=== PATIENT | female | born 1955 | race Caucasian/White ===

== ENCOUNTER → 2017-11-20 | Day surgery (SDC) | payer BC ==
[2017-11-18 10:17] VITALS: Ht 149.9 cm; Wt 59.1 kg
[~2017-11-20] VITALS: Ht 149.9 cm; Wt 59.1 kg
[~2017-11-20] MED LIST: 500ML BSS 0.3ML EPI 1:1000PF IRRIG ONE; ACETAMINOPHEN 325 MG TAB PO PRN; AMVISC PLUS 0.8ML SYRINGE INT OCU ONE; ATROPINE SULFATE 0.1 MG/ML 5ML SYR IV PRN; AcetaZOLAMIDE 250 MG TAB PO SCH; BENA40TA6 PO; BETAXOLOL HCL 0.25% OP SUSP PER DROP CHARGE OPR SCH; BRIMONIDINE TART 0.2% OP SOLN PER DROP CHARGE ONE; CLON-460 PO; CYCLOPENTOLATE HCL 1% OP SOLN PER DROP CHARGE OPR SCH; ENDOCOAT 0.85ML SYRINGE INT OCU ONE; EpHEDrine SULFATE INJ 50 MG/ML AMP IV PRN; EpINEphrine INJ 1MG/ML AMP 1 MG/ML AMP ONE; LACTATED RINGER'S 1000ML 500 ML IV SCH; LIDOCAINE 4% OP SOLN DROP CHARGE ONE; LIDOCAINE 4% OP SOLN DROP CHARGE OPR SCH; LIDOCAINE HCL 1% MPF 2 ML VIAL ONE; MIDAZOLAM HCL 1 MG/ML 2ML VIAL ONE; MIX: 4ML BSS 1ML EPI 1:1000 PF INSTIL ONE; MOXIFLOXACIN OPH SOLN PER DROP CHARGE ONE; MOXIFLOXACIN OPH SOLN PER DROP CHARGE OPR SCH; OCUCOAT 1 ML SOLN IO ONE; PHENYLEPHRINE HCL 2.5% OP SOLN PER DROP CHARGE OPR SCH; POVIDONE-IODINE OP SOLN 30 ML BTL ONE; PROP80TA2 PO; PROPARACAINE 0.5% OP SOLN PER DROP CHARGE OPR SCH; TOBRAMYCIN/DEXAMETHASONE OPH OINT PER APPLN CHARGE ONE; TROPICAMIDE 1% OP SOLN PER DROP CHARGE OPR SCH
--- NOTE | 2017-11-20 07:35 | History & Physical Bridge - SC ---
H&P Re-Evaluation Bridge Note: I have examined the patient, reviewed the History & Physical and in the interval since the performance of the History & Physical I have noted the following changes of clinical significance: No changes noted
[2017-11-20] MEDS: PHENYLEPHRINE HCL 2.5% OP SOLN PER DROP CHARGE OPR SCH ×2 (08:42→08:46)
[2017-11-20] MEDS: TROPICAMIDE 1% OP SOLN PER DROP CHARGE OPR SCH ×2 (08:43→08:48)
[2017-11-20] MEDS: CYCLOPENTOLATE HCL 1% OP SOLN PER DROP CHARGE OPR SCH ×2 (08:44→08:49)
[2017-11-20] MEDS: MOXIFLOXACIN OPH SOLN PER DROP CHARGE OPR SCH ×2 (08:45→08:55)
[2017-11-20] MEDS: LACTATED RINGER'S 1000ML 500 ML IV SCH ×2 (08:57→09:09)
--- NOTE | 2017-11-20 09:33 | [facility] Operative Report ---
Operative Report Date of Service Nov 20, 2017. Operative Report 1. PREOPERATIVE DIAGNOSIS: Senile Posterior Subcapsular Cataract, right eye. 2. POSTOPERATIVE DIAGNOSIS: Senile Posterior Subcapsular Cataract, right eye. 3. PROCEDURE: Phacoemulsification of right cataract with posterior chamber lens implant, type Tecnis, model Symfony [id number], power +21.5 diopters. ANESTHESIA: Local standby. SURGEON: Dr. Brown. COMPLICATIONS: None. OPERATING TIME: 10 minutes. 4. OPERATION AND FINDINGS: DESCRIPTION OF PROCEDURE: The right pupil was dilated. The anesthetic was administered using a topical technique. The right eye was prepped and draped. A speculum was placed. A clear corneal incision was formed. The chamber was filled with Amvisc Plus and Endocoat. Epinephrine solution was used. A paracentesis was placed. A capsulorrhexis was performed. The nucleus was hydrodissected. The lens was removed with phacoemulsification. Time was 3.26 seconds. The aspiration unit was used to remove the cortex. The capsule was filled with Amvisc Plus. The lens implant was folded and placed into the capsule. The incision was hydrated. The Amvisc was aspirated. The wound was secure. The chamber was deep. The pupil was round. Brimonidine, TobraDex ointment and Vigamox solution were placed. The speculum was removed. The patient was returned to the Recovery Room in stable condition. I attest to the content of the Intraoperative Record and any orders documented therein. Any exceptions are noted below. The scribe's documentation has been prepared in my presence, under my direction and personally reviewed by me in its entirety. I confirm that the note above accurately reflects all work, treatment, procedures, and medical decision making performed by me. I personally scribed for Ernesto Brown M.D. ([email or web address]) on 11/20/17 at 09:33. Electronically submitted by Noreen Winchester ([email or web address]).
--- NOTE | 2017-11-20 09:35 | Discharge Instructions-SurgCtr ---
Discharge Instructions Date of Service Nov 20, 2017. Visit Reason for Visit: Cataract Right Eye Discharge Discharge Diagnosis / Problem: lens implant right eye Discharge Goals Goal(s): Improve function Activity Recommendations Activity Limitations: resume your previous activity Lifting Limitations: no more than 10 pounds Exercise/Sports Limitations: gradually increase as tolerated May Resume Sexual Activity: when tolerated Shower/Bathe: tomorrow Driving or Machine Use: resume 1 day after discharge Anesthesia . Post Anesthesia Instructions: If you have had General Anesthesia or IV Sedation: * Do not drive today. * Resume driving when surgeon permits. * Do not make important decisions or sign legal documents today. * Call surgeon for: 1. Temperature elevations greater than 101 degrees F. 2. Uncontrollable pain. 3. Excessive bleeding. 4. Persistent nausea and vomiting. 5. Medication intolerance (nausea, vomiting or rash). * For nausea and vomiting use only clear liquids such as: tea, soda, bouillon until nausea subsides, then gradually increase diet as tolerated. * If you have any concerns or questions, call your surgeon's office. If physician is unavailable and it is an emergency, call 911 or go to the nearest emergency room. . Instructions / Follow-Up Instructions / Follow-Up ACTIVITY RECOMMENDATIONS: * Light activities. * Mild irritation and blurred vision are common for the first few days. * You may walk outside, read, watch television. * Redness around the white part of the eye is common. MEDICATIONS: Resume previous medications unless instructed otherwise by your surgeon. * Take white Diamox (Acetazolamide) tablet at 1 pm today. Start all eye drops at 1 pm today: * Eye drops (today and tomorrow): Prednisone - one drop in operative eye every 3 hours while awake Ofloxacin - one drop in operative eye every 3 hours while awake SPECIAL CARE INSTRUCTIONS: * Tape plastic shield over eye to sleep at night. Call your doctor at with any concerns or problems. FOLLOW UP VISIT: Follow-up with Dr Brown at [place] office as scheduled. Diet Recommendations Home Diet: no limitations Procedures Procedures Performed: Right Cataract Phacoemulsification With Intraocular Lens Implant; Symfony Lens Pending Studies Studies pending at discharge: no Medical Emergencies . Who to Call and When: Medical Emergencies: If at any time you feel your situation is an emergency, please call 911 immediately. . Non-Emergent Contact Non-Emergency issues call your: Director Of Regulatory Affairs Call Non-Emergent contact if: your pain is not controlled [phone] . . "Provider Documentation" section prepared by Ernesto Brown. .
[2017-11-20 09:38] VITALS: TEMP 36.5
[2017-11-20 09:54] VITALS: BP 141/85; PULSE 81; O2SAT 96
--- NOTE | 2017-11-20 10:11 | Anesthesia Progress Nt - [facility] ---
Anesthesia Post Op Note Date & Time Nov 20, 2017 at 10:11 Vital Signs Pain Intensity: 0 Vital Signs Past 12 Hours Date Time Temp Pulse Resp B/P (MAP) Pulse Ox O2 Delivery O2 Flow Rate FiO2 11/20/17 09:54 81 16 141/85 (103) 96 Room Air 11/20/17 09:38 36.5 62 16 153/63 (93) 98 Room Air 11/20/17 08:26 36.8 65 20 141/88 (105) 100 Room Air Notes Mental Status: alert / awake / arousable, participated in evaluation Nausea / Vomiting: adequately controlled Pain: adequately controlled Airway Patency, RR, SpO2: stable & adequate BP & HR: stable & adequate Hydration State: stable & adequate Anesthetic Complications: no major complications apparent
== END | disposition home or self-care (01) ==
LOC: X.SURG 07:57
PROVIDERS: ATTEND Specialist
DX: H26.8 Other specified cataract (principal); I10 Essential (primary) hypertension

== ENCOUNTER 2018-04-21 06:27 | Inpatient (IN) ==
[2018-04-21] MEDS ORDERED: PANTOprazole 80 MG in DEXTROSE 5% 100 ML IV ONE (06:57)
[2018-04-21] MEDS ORDERED: PANTOPRAZOLE BOLUS/DRIP 1 EA IV STA (06:57)
[2018-04-21] MEDS ORDERED: SODIUM CHLORIDE 0.9% 500 ML IV SCH (07:00)
[2018-04-21 07:04] LABS: iSTAT Hemoglobin 5.1 g/dl (12.0-16.0); iSTAT Ionized Calcium 1.07 mmol/l (1.12-1.32)
[2018-04-21 07:17] LABS: Albumin Level 2.1 gm/dl (3.4-5.0); BUN Creatinine Ratio 25.1 (10-20); Creatinine Clr Calc Pharmacy 37.9 ml/min; Est GFR (African American) 49.1; Est GFR (Non-African American) 42.4; INR 1.3 (0.9-1.1); Partial Thromboplastin Ratio 0.8; Partial Thromboplastin Time 21.3 Seconds (21.0-31.0); Potassium 4.6 mmol/L (3.5-5.1); Prothrombin Time 13.2 Seconds (9.0-12.0)
[2018-04-21 07:20] LABS: Albumin Globulin Ratio 0.5 (0.9-2); Bilirubin,Total 1.4 mg/dl (0.2-1); Total Protein 6.1 gm/dl (6.4-8.2)
--- NOTE | 2018-04-21 07:24 | XRay Report ---
XR chest 1V portable CLINICAL HISTORY: GI bleed dyspnea COMPARISON STUDY: 04/03/2018 FINDINGS: The bones soft tissues and hemidiaphragms are normal. The cardiomediastinal silhouette is n ormal. The lungs are clear. The pulmonary vasculature is normal. IMPRESSION: Negative chest. The above report was generated using voice recognition software. It may contain grammatical, syntax or spelling errors. Electronically signed by: Camden Banuelos M.D. 04/21/2018 7:22 AM
[2018-04-21 07:25] LABS: Hematocrit (blood only) 14.4 % (37-47); Hemoglobin 4.3 g/dL (12.0-16.0); Mean Corpuscular Hgb Conc 29.9 g/dL (32-36); Mean Corpuscular Volume 81.8 fL (80-100); Mean Platelet Volume 10.4 fL (7.4-10.4); Nucleated RBC # (auto) 0.09 K/uL (0-0); Nucleated RBC % (auto) 0.8 %; Platelet Count 236 K/uL (130-400); RDW Coefficient of Variation 21.4 % (11.5-14.5); RDW Standard Deviation 64.1 fL (36.4-46.3); Red Blood Count 1.76 M/uL (4.2-5.4); White Blood Count 10.37 K/uL (4.8-10.8)
[2018-04-21 07:38] LABS: Anisocytosis Present; Basophils # (auto) 0.05 K/uL (0-0.2); Basophils % (auto) 0.5 %; Eosinophils # (auto) 0.84 K/uL (0-0.5); Eosinophils % (auto) 8.1 %; Hypochromasia Present; Immature Granulocytes # (auto) 0.02 K/uL (0.00-0.02); Immature Granulocytes % (auto) 0.2 %; Lymphocytes # (auto) 1.76 K/uL (1.2-3.4); Monocytes # (auto) 1.05 K/uL (0.11-0.59); Monocytes % (auto) 10.1 %; Neutrophils # (auto) 6.65 K/uL (1.4-6.5); Neutrophils % (auto) 64.1 %; Polychromasia 1+; Schistocytes 1+; Target Cells 1+
[2018-04-21] MEDS: PANTOprazole 40 MG in DEXTROSE 5% 100 ML IV SCH ×4 (07:50→22:58)
[2018-04-21] MEDS ORDERED: OCTREOTIDE ACETATE 100 MCG in SYRINGE 9 ML IV STA (08:24)
[2018-04-21] MEDS ORDERED: ICU PROTOCOL FOR HYPERGLYCEMIA PRN (10:02)
[2018-04-21] MEDS ORDERED: LORazepam 1 MG/2 ML VIAL IV PRN (10:02)
--- NOTE | 2018-04-21 10:38 | History & Physical Report ---
Date of Service April 21, 2018 Assessment & Plan (1) GI bleed: (2) Anemia: -Admit to ICU -Patient presenting from home with reports of generalized weakness and dark tarry stools x 2 days; due to recent admission to [facility] 04/03 through 04/10 for hepatic encephalopathy, alcohol withdrawal, UTI, C. difficile -In the ED, patient found to have hemoglobin 4.3; mildly tachycardic but otherwise hemodynamically stable -EGD 02/2018 Impression: Moderate Schatzki ring, Medium-sized hiatal hernia, A few non-bleeding angioectasias in the stomach, Multiple non-bleeding angioectasias in the duodenum. -Transfuse 2 unit PRBC, start serial H&H after PRBC transfusion -Case was discussed with Dr. Lozano -recommends IV PPI drip and IV octreotide drip -N.p.o., IVF when PRBC not infusing (3) RANDY (acute kidney injury): -Creatinine 1.34 on presentation (baseline 0.6-0.9) -Likely prerenal secondary to hypovolemia from blood loss -Transfuse as needed PRBC, IVF when PRBC not infusing -Hold diuretics (4) Alcoholic cirrhosis of liver: (5) Alcohol abuse: -Patient with history of heavy alcohol use in the past, recent admission for alcohol withdrawal/hepatic encephalopathy/decompensated cirrhosis -Patient reports "a couple sips of alcohol" over the past couple weeks -Check alcohol level -Alcohol withdrawal "at risk" protocol -Holding diuretics for cirrhosis secondary to RANDY as above (6) Clostridium difficile infection: -Due to insurance coverage issues, there was a delay in patient picking up oral vancomycin from recent hospital discharge -No diarrhea or abdominal pain, afebrile -Discussed with lily JIMENEZ for patient to complete remaining oral vancomycin course (7) Essential tremor: -Hold propranolol for now due to hypovolemia /borderline BPs (8) DVT prophylaxis: -SCDs due to GI bleed History of Present Illness Chief Complaint: Generalized weakness Primary Care Provider: Mary Martinez 62-year-old female who presents to the ED with generalized weakness. Patient has history of alcoholic cirrhosis, recently being admitted to [facility] 04/03 through 04/10 for hepatic encephalopathy, alcohol withdrawal, C. difficile infection, enterococcus UTI. Patient was discharged on amoxicillin for the UTI which she completed. She was also discharged on vancomycin capsules for the C. difficile however reports difficulty with insurance coverage and patient still has 9 tablets remaining of the prescription. Since being home, patient reports she has been doing well until a couple of days ago. Of note, patient did miss her hospital discharge follow-up appointment with PCP. Patient reports generalized weakness for the past couple of days. She also has noted her stools to be dark and tarry. is at the bedside who reports that he took her blood pressure this morning and systolically it was in the 60s. Patient reports having "a couple sips of alcohol"over the past 2 weeks. She denies abdominal pain, nausea, vomiting, diarrhea. No fevers chills. She denies lightheadedness, dizziness, diaphoresis, syncopal events. No urinary symptoms. In the ED, patient is found to have hemoglobin 4.3. She is hemodynamically stable. She was given IVF and started on a PPI drip. She was also typed and crossed for PRBC transfusion. Allergies Allergy/AdvReac Type Severity Reaction Status Date / Time lactulose AdvReac Severe severe Verified 04/21/18 06:55 loose diarrhea Home Medications Home Medications Medication Instructions Recorded Confirmed Type thiamine HCl (vitamin B1) [Vitamin 100 mg PO QAM #0 tab 03/13/18 04/21/18 Rx B-1] spironolactone 200 mg PO DAILY 04/03/18 04/21/18 History furosemide 40 mg PO QAM 30 Days #30 tab 04/10/18 04/21/18 Rx pantoprazole 40 mg PO QAM 30 Days #30 tab 04/10/18 04/21/18 Rx propranolol 40 mg PO QAM 30 Days #15 tab 04/10/18 04/21/18 Rx folic acid 1 mg PO DAILY 04/21/18 04/21/18 History magnesium oxide 400 mg PO DAILY 04/21/18 04/21/18 History rifaximin 550 mg PO BID 04/21/18 04/21/18 History vancomycin 125 mg PO Q6H 04/21/18 04/21/18 History Past Med/Surg History Medical History Clostridium difficile infection (Chronic) Alcoholic cirrhosis of liver (Chronic) Anemia (Acute) Alcohol abuse (Chronic) Essential tremor (Chronic) On propanolol Telangiectasia (Chronic) Alcohol dependence (Inactive) Alcohol withdrawal (Inactive) Altered mental status (Inactive) Anasarca (Inactive) Anemia (Inactive) DVT prophylaxis (Inactive) Decompensated hepatic cirrhosis (Inactive) ETOH abuse (Inactive) Elevated INR (Inactive) Encephalopathy, hepatic (Inactive) Encounter for pre-operative examination (Inactive) Enterococcal infection (Inactive) GI bleed (Inactive) Hyperammonemia (Inactive) Hyperbilirubinemia (Inactive) Jaundice (Inactive) Liver cirrhosis (Inactive) Severe anemia (Inactive) s/p 3 units of PRBCs transfusion Skin ulcer of buttock, limited to breakdown of skin (Inactive) UTI (urinary tract infection) due to Enterococcus (Inactive) Weakness (Inactive) Surgical History History of cataract surgery (Resolved) Family History Other No pertinent family history Social History marital status: Current Living Situation: Spouse current occupational status: unemployed Other Information That Helps Us Care for You: No Feels Safe at Home: Yes Safety Concerns: Feels Safe At This Time Smoking Status: Never smoker Hx Alcohol Use: Yes (History of heavy alcohol use) Alcohol type: hard liquor and other Alcohol Intake Frequency: other Hx Substance Use: No Beliefs That Will Affect Care: None Preferred Language: [place] Communication Ability: Impaired Review of Systems ROS per HPI, all other systems reviewed and negative Physical Exam 2 Vital Signs (Past 24 Hours): Last Vital Signs Temp 36.8 C 04/21/18 10:20 Pulse 91 H 04/21/18 10:20 Resp 18 04/21/18 10:20 BP 119/58 L 04/21/18 10:20 Pulse Ox 100 04/21/18 10:20 Constitutional: WD/WN, vitals as above Eyes: PERRL, conjunctivae normal, anicteric sclerae ENMT: external ear and nose normal, oropharynx normal Respiratory: normal respiratory effort, lungs clear to auscultation Cardiovascular: Rate/Rhythm: regular rhythm and + tachycardic Vessels: normal peripheral pulses Extremities: + edema Gastrointestinal (Abdomen): normal bowel sounds, soft, nontender, no hepatosplenomegaly Musculoskeletal: no cyanosis or clubbing, extremities motor strength 5/5 Skin: no rashes, warm and dry Chronic telangiectasia noted to be BUE and BLE Neurologic: PERRL, EOMI, accommodation nl, no face palsy, no dysarthria Psychiatric: A+Ox3, euthymic affect Results & Data Laboratory Results Laboratory Last Values WBC 10.37 K/uL (4.8-10.8) 04/21/18 06:42 RBC 1.76 M/uL (4.2-5.4) L 04/21/18 06:42 Hgb 4.3 g/dL (12.0-16.0) L* 04/21/18 06:42 POC Hgb 5.1 g/dl (12.0-16.0) L* 04/21/18 06:50 Hct 14.4 % (37-47) L* 04/21/18 06:42 POC Hct 15 % (37-47) L* 04/21/18 06:50 MCV 81.8 fL (80-100) 04/21/18 06:42 MCH 24.4 pg (25-34) L 04/21/18 06:42 MCHC 29.9 g/dL (32-36) L 04/21/18 06:42 RDW Std Deviation 64.1 fL (36.4-46.3) H 04/21/18 06:42 RDW Coeff of Ladarius 21.4 % (11.5-14.5) H 04/21/18 06:42 Plt Count 236 K/uL (130-400) 04/21/18 06:42 MPV 10.4 fL (7.4-10.4) 04/21/18 06:42 Immature Gran % (Auto) 0.2 % 04/21/18 06:42 Neut % (Auto) 64.1 % 04/21/18 06:42 Lymph % (Auto) 17.0 % 04/21/18 06:42 Pender % (Auto) 10.1 % 04/21/18 06:42 Eos % (Auto) 8.1 % 04/21/18 06:42 Baso % (Auto) 0.5 % 04/21/18 06:42 Immature Gran # (Auto) 0.02 K/uL (0.00-0.02) 04/21/18 06:42 Neut # (Auto) 6.65 K/uL (1.4-6.5) H 04/21/18 06:42 Lymph # (Auto) 1.76 K/uL (1.2-3.4) 04/21/18 06:42 Pender # (Auto) 1.05 K/uL (0.11-0.59) H 04/21/18 06:42 Eos # (Auto) 0.84 K/uL (0-0.5) H 04/21/18 06:42 Baso # (Auto) 0.05 K/uL (0-0.2) 04/21/18 06:42 Absolute Nucleated RBC 0.09 K/uL (0-0) H 04/21/18 06:42 Nucleated RBC % (auto) 0.8 % 04/21/18 06:42 Polychromasia 1+ 04/21/18 06:42 Hypochromasia Present 04/21/18 06:42 Anisocytosis Present 04/21/18 06:42 Target Cells 1+ 04/21/18 06:42 Schistocytes 1+ 04/21/18 06:42 PT 13.2 Seconds (9.0-12.0) H 04/21/18 06:42 INR 1.3 (0.9-1.1) H 04/21/18 06:42 APTT 21.3 Seconds (21.0-31.0) 04/21/18 06:42 PTT Ratio 0.8 04/21/18 06:42 POC Sodium 136 mEq/L (135-144) 04/21/18 06:50 Sodium 135 mmol/L (136-145) L 04/21/18 06:42 POC Potassium 4.6 mEq/L (3.3-5.0) 04/21/18 06:50 Potassium 4.6 mmol/L (3.5-5.1) 04/21/18 06:42 POC Chloride 104 mEq/L (101-112) 04/21/18 06:50 Chloride 106 mmol/L (98-107) 04/21/18 06:42 Carbon Dioxide 18 mmol/L (21-32) L 04/21/18 06:42 POC Total CO2 17 mEq/l (24-31) L 04/21/18 06:50 Anion Gap 12.0 (3-11) H 04/21/18 06:42 POC Anion Gap 21.0 mmol/L (16-25) 04/21/18 06:50 POC BUN 29 mg/dl (7-18) H 04/21/18 06:50 BUN 34 mg/dl (7-18) H 04/21/18 06:42 Creatinine 1.34 mg/dl (0.6-1.2) H 04/21/18 06:42 POC Creatinine 1.3 mg/dl (0.6-1.3) 04/21/18 06:50 Est Cr Clr Drug Dosing 37.9 ml/min 04/21/18 06:42 Est GFR ( Amer) 49.1 04/21/18 06:42 Est GFR (Non-Af Amer) 42.4 04/21/18 06:42 BUN/Creatinine Ratio 25.1 (10-20) H 04/21/18 06:42 Glucose 110 mg/dl (70-99) H 04/21/18 06:42 POC Glucose (other) 109 mg/dl (70-99) H 04/21/18 06:50 Calcium 8.0 mg/dl (8.5-10.1) L 04/21/18 06:42 POC Ioniz Calcium Zechariah 1.07 mmol/l (1.12-1.32) L 04/21/18 06:50 Magnesium 1.8 mg/dl (1.8-2.4) 04/21/18 06:42 Total Bilirubin 1.4 mg/dl (0.2-1) H 04/21/18 06:42 AST 40 U/L (15-37) H 04/21/18 06:42 ALT 22 U/L (12-78) 04/21/18 06:42 Alkaline Phosphatase 163 U/L (45-117) H 04/21/18 06:42 Total Protein 6.1 gm/dl (6.4-8.2) L 04/21/18 06:42 Albumin 2.1 gm/dl (3.4-5.0) L 04/21/18 06:42 Globulin 4.0 gm/dl (2.5-4.0) 04/21/18 06:42 Albumin/Globulin Ratio 0.5 (0.9-2) L 04/21/18 06:42 POC Stool Occult Blood Positive (Negative) H 04/21/18 06:54 Blood Type B Positive 04/21/18 06:42 Antibody Screen NEGATIVE 04/21/18 06:42 Crossmatch See Detail 04/21/18 06:42 Diagnostic Findings CXR IMPRESSION: Negative chest. Code Status & VTE Plan VTE Prophylaxis Plan VTE Prophylaxis will be ordered: Yes Supervising Physician Co-Signing Physician Notes I have seen and examined the patient and have discussed the case with the provider above. I agree with the assessment and plan as stated. Mrs. Jordan is well known to me from prior admissions. She appears to be at baseline mental status. She recently discovered some blackish stools in the last couple of days. She denies any drinking. She feels her chronic skin wounds are less painful. She has underlying HHT, which is likely contributing to her blood loss anemia in addition to her cirrhotic condition causing higher intravenous pressures and a decline in factor production by the liver. She has now had multiple episodes where she has required a blood transfusion in the last couple of months. Therefore, she will need some weekly or biweekly monitoring after discharge. She is currently receiving two units of blood and doing well with this. She is being resuscitated in the ICU with a plan for EGD in am per GI. Jefry, DO _ (1) Anemia Anemia type: unspecified type Bone marrow failure anemia type: Chronic kidney disease stage: Folate deficiency anemia type: Hemolytic anemia type: Iron deficiency anemia type: Other causes of anemia: Vitamin B12 deficiency anemia type: Qualified Code(s): D64.9 - Anemia, unspecified
--- NOTE | 2018-04-21 11:19 | Procedure Note ---
Procedure Note Date of Service April 21, 2018 Note Central line placement due to poor IV access, done at the bedside in room 2 in ICU, consent obtained from the and the patient, agreed to the procedure. The patient was placed in supine position, under strict sterile field, using Seldinger technique, anterior approach, the skin was prepped with chlorhexidine, injected with 10 mL of 1% lidocaine, using a dilator, central line was placed to 16 cm, all ports were flushed with saline, secured with 2 sutures, covered with surgical dressing, no immediate complication, chest x-ray is pending. Will review. Thank you
--- NOTE | 2018-04-21 12:06 | Gastrointestinal Consultation ---
Date of Consultation April 21, 2018 Assessment & Plan (1) Alcoholic cirrhosis of liver: Pt is a 62 y/o female w hx of ETOH cirrhosis admitted for symptomatic anemia, melena. 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 - Resuscitate w blood transfusions ; Monitor H/H closely - Ok for CL diet today until midnight - PPI bolus and gtt. - Continue Octreotide gtt. - Keep NPO after midnight for EGD evaluation tomorrow. - Complete Vancomycin course for prior Cdiff infection. - Continue Xifaxan and Lactulose at home doses to prevent hepatic encephalopathy. Present on Admission?: Yes (2) Anemia: Present on Admission?: Yes (3) Clostridium difficile infection: Present on Admission?: Yes (4) Telangiectasia: Present on Admission?: Yes Supervising Physician Co-Signing Physician Notes I have performed a history and physical examination of this patient and reviewed the electronic medical record. Specifically, on physical examination patient is arousable but disoriented. I have discussed the case with MASON Natarajan. The above note reflects my findings, conclusions, and recommendations. Ernesto Lozano MD History of Present Illness Reason for Consultation: GI bleed Requesting Physician: Dr. Brandi Capps Attending Physician: Dr. Uday Lozano History of Present Illness Pt is a 62 y/o female w hx ETOH cirrhosis, who presented to ED w weakness and reports of dark stools x 48 hrs. She was admitted 04/03- for hepatic encephalopathy, ETOH withdrawal, enterococcus UTI, Cdiff. After DC'd she did have "sips"of ETOH w family but reports family knows pt shouldn't be drinking ETOH. Upon presentation, she was noted to have Hgb of 4, VS stable otherwise. She denies any light headedness, dizziness, CP, SOB, abd pain, n/v otherwise. She was type and crossed 4U PRBC, getting first unit transfused in ED. She didn't have any BMs in ED but stool did test heme positive. CXR unremarkable. Endoscopic hisotry: EGD 2018: ring, HH, AVMS, no varices Colonoscopy 2018:Multiple ulcers from transverse colon to cecum. Biopsied. Multiple colonic angioectasias Allergies Allergy/AdvReac Type Severity Reaction Status Date / Time lactulose AdvReac Severe severe Verified 04/21/18 06:55 loose diarrhea Home Medications Home Medications Medication Instructions Recorded Confirmed Type thiamine HCl (vitamin B1) [Vitamin 100 mg PO QAM #0 tab 03/13/18 04/21/18 Rx B-1] spironolactone 200 mg PO DAILY 04/03/18 04/21/18 History furosemide 40 mg PO QAM 30 Days #30 tab 04/10/18 04/21/18 Rx pantoprazole 40 mg PO QAM 30 Days #30 tab 04/10/18 04/21/18 Rx propranolol 40 mg PO QAM 30 Days #15 tab 04/10/18 04/21/18 Rx folic acid 1 mg PO DAILY 04/21/18 04/21/18 History magnesium oxide 400 mg PO DAILY 04/21/18 04/21/18 History rifaximin 550 mg PO BID 04/21/18 04/21/18 History vancomycin 125 mg PO Q6H 04/21/18 04/21/18 History Patient History Medical History Clostridium difficile infection (Chronic) Alcoholic cirrhosis of liver (Chronic) Anemia (Acute) Alcohol abuse (Chronic) Essential tremor (Chronic) On propanolol Telangiectasia (Chronic) Alcohol dependence (Inactive) Alcohol withdrawal (Inactive) Altered mental status (Inactive) Anasarca (Inactive) Anemia (Inactive) DVT prophylaxis (Inactive) Decompensated hepatic cirrhosis (Inactive) ETOH abuse (Inactive) Elevated INR (Inactive) Encephalopathy, hepatic (Inactive) Encounter for pre-operative examination (Inactive) Enterococcal infection (Inactive) GI bleed (Inactive) Hyperammonemia (Inactive) Hyperbilirubinemia (Inactive) Jaundice (Inactive) Liver cirrhosis (Inactive) Severe anemia (Inactive) s/p 3 units of PRBCs transfusion Skin ulcer of buttock, limited to breakdown of skin (Inactive) UTI (urinary tract infection) due to Enterococcus (Inactive) Weakness (Inactive) Surgical History History of cataract surgery (Resolved) Family History Other No pertinent family history Social History marital status: Current Living Situation: Spouse current occupational status: unemployed Other Information That Helps Us Care for You: No Feels Safe at Home: Yes Safety Concerns: Feels Safe At This Time Smoking Status: Never smoker Hx Alcohol Use: Yes (History of heavy alcohol use) Alcohol type: hard liquor and other Alcohol Intake Frequency: other Hx Substance Use: No Beliefs That Will Affect Care: None Preferred Language: Belizean Communication Ability: Impaired Review of Systems Constitutional: as per Subjective / HPI and + weakness Respiratory: no cough and no dyspnea Cardiovascular: no chest pain Gastrointestinal: as per Subjective / HPI Integumentary: no yellowing of the skin Physical Exam 2 Vital Signs (Past 24 Hours): Last Vital Signs Temp 36.8 C 04/21/18 11:05 Pulse 101 H 04/21/18 11:05 Resp 23 04/21/18 11:05 BP 123/65 04/21/18 11:05 Pulse Ox 100 04/21/18 11:05 Constitutional: WD/WN, vitals as above well groomed, cooperative and comfortable Eyes: PERRL, conjunctivae normal, anicteric sclerae ENMT: external ear and nose normal, oropharynx normal Respiratory: normal respiratory effort, lungs clear to auscultation Cardiovascular: RRR, no murmur, no edema Gastrointestinal (Abdomen): normal bowel sounds, soft, nontender, no hepatosplenomegaly Skin: no rashes, warm and dry no jaundice Neurologic: Motor/Sensory: no asterixis Psychiatric: Orientation: alert, oriented to person, oriented to place and cooperative Affect: euthymic affect Lymphatic: no lymphedema Results & Data Laboratory Results Laboratory Results - last 48 hr 04/21/18 04/21/18 04/21/18 06:42 06:42 06:42 WBC 10.37 RBC 1.76 L Hgb 4.3 L* POC Hgb Hct 14.4 L* POC Hct MCV 81.8 MCH 24.4 L MCHC 29.9 L RDW Std Deviation 64.1 H RDW Coeff of [place] 21.4 H Plt Count 236 MPV 10.4 Immature Gran % (Auto) 0.2 Neut % (Auto) 64.1 Lymph % (Auto) 17.0 [place] % (Auto) 10.1 Eos % (Auto) 8.1 Baso % (Auto) 0.5 Immature Gran # (Auto) 0.02 Neut # (Auto) 6.65 H Lymph # (Auto) 1.76 [place] # (Auto) 1.05 H Eos # (Auto) 0.84 H Baso # (Auto) 0.05 Absolute Nucleated RBC 0.09 H Nucleated RBC % (auto) 0.8 Polychromasia 1+ Hypochromasia Present Anisocytosis Present Target Cells 1+ Schistocytes 1+ PT 13.2 H INR 1.3 H APTT 21.3 PTT Ratio 0.8 POC Sodium Sodium 135 L POC Potassium Potassium 4.6 POC Chloride Chloride 106 Carbon Dioxide 18 L POC Total CO2 Anion Gap 12.0 H POC Anion Gap POC BUN BUN 34 H Creatinine 1.34 H POC Creatinine Est Cr Clr Drug Dosing 37.9 Est GFR ( Amer) 49.1 Est GFR (Non-Af Amer) 42.4 BUN/Creatinine Ratio 25.1 H Glucose 110 H POC Glucose (other) Calcium 8.0 L POC Ioniz Calcium Zechariah Magnesium Total Bilirubin 1.4 H AST 40 H ALT 22 Alkaline Phosphatase 163 H Total Protein 6.1 L Albumin 2.1 L Globulin 4.0 Albumin/Globulin Ratio 0.5 L POC Stool Occult Blood Blood Type Antibody Screen Crossmatch 04/21/18 04/21/18 04/21/18 06:42 06:42 06:50 WBC RBC Hgb POC Hgb 5.1 L* Hct POC Hct 15 L* MCV MCH MCHC RDW Std Deviation RDW Coeff of [place] Plt Count MPV Immature Gran % (Auto) Neut % (Auto) Lymph % (Auto) [place] % (Auto) Eos % (Auto) Baso % (Auto) Immature Gran # (Auto) Neut # (Auto) Lymph # (Auto) [place] # (Auto) Eos # (Auto) Baso # (Auto) Absolute Nucleated RBC Nucleated RBC % (auto) Polychromasia Hypochromasia Anisocytosis Target Cells Schistocytes PT INR APTT PTT Ratio POC Sodium 136 Sodium POC Potassium 4.6 Potassium POC Chloride 104 Chloride Carbon Dioxide POC Total CO2 17 L Anion Gap POC Anion Gap 21.0 POC BUN 29 H BUN Creatinine POC Creatinine 1.3 Est Cr Clr Drug Dosing Est GFR ( Amer) Est GFR (Non-Af Amer) BUN/Creatinine Ratio Glucose POC Glucose (other) 109 H Calcium POC Ioniz Calcium Zechariah 1.07 L Magnesium 1.8 Total Bilirubin AST ALT Alkaline Phosphatase Total Protein Albumin Globulin Albumin/Globulin Ratio POC Stool Occult Blood Blood Type B Positive Antibody Screen NEGATIVE Crossmatch See Detail 04/21/18 06:54 WBC RBC Hgb POC Hgb Hct POC Hct MCV MCH MCHC RDW Std Deviation RDW Coeff of Ladarius Plt Count MPV Immature Gran % (Auto) Neut % (Auto) Lymph % (Auto) [place] % (Auto) Eos % (Auto) Baso % (Auto) Immature Gran # (Auto) Neut # (Auto) Lymph # (Auto) [place] # (Auto) Eos # (Auto) Baso # (Auto) Absolute Nucleated RBC Nucleated RBC % (auto) Polychromasia Hypochromasia Anisocytosis Target Cells Schistocytes PT INR APTT PTT Ratio POC Sodium Sodium POC Potassium Potassium POC Chloride Chloride Carbon Dioxide POC Total CO2 Anion Gap POC Anion Gap POC BUN BUN Creatinine POC Creatinine Est Cr Clr Drug Dosing Est GFR ( Amer) Est GFR (Non-Af Amer) BUN/Creatinine Ratio Glucose POC Glucose (other) Calcium POC Ioniz Calcium Zechariah Magnesium Total Bilirubin AST ALT Alkaline Phosphatase Total Protein Albumin Globulin Albumin/Globulin Ratio POC Stool Occult Blood Positive H Blood Type Antibody Screen Crossmatch _ (1) Anemia Anemia type: unspecified type Bone marrow failure anemia type: Chronic kidney disease stage: Folate deficiency anemia type: Hemolytic anemia type: Iron deficiency anemia type: Other causes of anemia: Vitamin B12 deficiency anemia type: Qualified Code(s): D64.9 - Anemia, unspecified
--- NOTE | 2018-04-21 12:14 | XRay Report ---
XR chest 1V portable CLINICAL HISTORY: Right-sided central venous catheter placement COMPARISON STUDY: 04/21/2018 FINDINGS: There is borderline elevation right hemidiaphragm. The heart is borderline enlarged. There is aortic tortuosity/ectasia. There is been interval placement of a right internal jugular central ve nous catheter. The tip projects at the level of the atriocaval junction. There is no pneumothorax.[ IMPRESSION: No pneumothorax status post placement of a right internal jugular central venous catheter . The tip projects at the level of the the atriocaval junction. Electronically signed by: Ander Sim M.D. 04/21/2018 12:12 PM
--- NOTE | 2018-04-21 12:19 | Critical Care Consultation ---
Date of Consultation April 21, 2018 Assessment & Plan (1) GI bleed: Impression: 1. GI bleeding, likely related to AVM given her history of Dsanu-Knuri-Mioco. 2. Alcoholic cirrhosis. 3. Alcohol abuse. 4. AK I. 5. History of C. difficile colitis, inactive. Plan: 1. Continue with serial hematocrit and hemoglobin. 2. Appreciate Dr. Lozano input from GI. 3. EGD in the morning. 4. Blood transfusion as needed. 5. Keep hematocrit above than 21. 6. IV fluid. 7. Protonix drip. 8. Octreotide drip. 9. Venodyne boots if tolerable. 10. Discussed with the at the bedside in details. 11. Start the patient on Vanco p.o. 12. Discussed with the staff in details. Critical care time spent with the patient excluding procedure time was 45 minutes. History of Present Illness Reason for Consultation: GI bleeding Requesting Physician: Dr. Capps Attending Physician: Brandi Capps, History of Present Illness Dear Dr. Capps: Thank you for the kind referral of Mrs. Jordan to critical care service. This is 62-year-old female with a history of liver cirrhosis secondary to alcoholism , history of hereditary hemorrhagic telangiectasia, recently discharged from the hospital with GI bleeding due to AVMs, presented to the hospital back again with generalized weakness and had bloody bowel movement noted. Her who is a psychiatrist was with her at the bedside. They denies any chest pain, she did not have any hematemesis, she did not have any nausea or vomiting, no shortness of breath, no upper airway symptoms. The patient has not been feeling sick however except for the past month. According to the , she was driving and walking properly without any assistance prior to the previous presentation a month ago. The patient did not have any altered mental status. However she appears very weak. She was answering questions properly. Did not have any pain. No increased swelling in her lower extremities. Review of system otherwise was unremarkable. Family history is not consistent with history of telangectasia, the patient is non-smoker but heavy drinker, she works in the medical field. Recent EGD showed AVM in her past surgical history. Allergies Allergy/AdvReac Type Severity Reaction Status Date / Time lactulose AdvReac Severe severe Verified 04/21/18 06:55 loose diarrhea Home Medications Home Medications Medication Instructions Recorded Confirmed Type thiamine HCl (vitamin B1) [Vitamin 100 mg PO QAM #0 tab 03/13/18 04/21/18 Rx B-1] spironolactone 200 mg PO DAILY 04/03/18 04/21/18 History furosemide 40 mg PO QAM 30 Days #30 tab 04/10/18 04/21/18 Rx pantoprazole 40 mg PO QAM 30 Days #30 tab 04/10/18 04/21/18 Rx propranolol 40 mg PO QAM 30 Days #15 tab 04/10/18 04/21/18 Rx folic acid 1 mg PO DAILY 04/21/18 04/21/18 History magnesium oxide 400 mg PO DAILY 04/21/18 04/21/18 History rifaximin 550 mg PO BID 04/21/18 04/21/18 History vancomycin 125 mg PO Q6H 04/21/18 04/21/18 History Patient History Medical History Clostridium difficile infection (Chronic) Alcoholic cirrhosis of liver (Chronic) Anemia (Acute) Alcohol abuse (Chronic) Essential tremor (Chronic) On propanolol Telangiectasia (Chronic) Alcohol dependence (Inactive) Alcohol withdrawal (Inactive) Altered mental status (Inactive) Anasarca (Inactive) Anemia (Inactive) DVT prophylaxis (Inactive) Decompensated hepatic cirrhosis (Inactive) ETOH abuse (Inactive) Elevated INR (Inactive) Encephalopathy, hepatic (Inactive) Encounter for pre-operative examination (Inactive) Enterococcal infection (Inactive) GI bleed (Inactive) Hyperammonemia (Inactive) Hyperbilirubinemia (Inactive) Jaundice (Inactive) Liver cirrhosis (Inactive) Severe anemia (Inactive) s/p 3 units of PRBCs transfusion Skin ulcer of buttock, limited to breakdown of skin (Inactive) UTI (urinary tract infection) due to Enterococcus (Inactive) Weakness (Inactive) Surgical History History of cataract surgery (Resolved) Family History Other No pertinent family history Social History marital status: Current Living Situation: Spouse current occupational status: unemployed Other Information That Helps Us Care for You: No Feels Safe at Home: Yes Safety Concerns: Feels Safe At This Time Smoking Status: Never smoker Hx Alcohol Use: Yes (History of heavy alcohol use) Alcohol type: hard liquor and other Alcohol Intake Frequency: other Hx Substance Use: No Beliefs That Will Affect Care: None Preferred Language: Mongolian Communication Ability: Impaired Review of Systems Apart from the above, review of system was unremarkable. Physical Exam 2 Vital Signs (Past 24 Hours): Last Vital Signs Temp 36.8 C 04/21/18 11:05 Pulse 101 H 04/21/18 11:05 Resp 23 04/21/18 11:05 BP 123/65 04/21/18 11:05 Pulse Ox 100 04/21/18 11:05 Physical Exam: Vital signs are stable, S1-S2 regular rate and rhythm, respiratory rate is 25, O2 saturation is normal. No stridor, lungs are clear, abdomen is benign, generalized telangiectasia mainly in the lower abdomen and lower extremities. Results & Data Laboratory Results Labs showed hemoglobin of 5 and hematocrit of 15. Platelets are 236. BUN and creatinine has been stable. No evidence of acidosis. Diagnostic Findings Chest x-ray post procedure showed the tip of the central line at the SVC, no pneumothorax.
[2018-04-21 12:33] LABS: Hematocrit (blood only) 20.4 % (37-47); Hemoglobin 6.5 g/dL (12.0-16.0)
[2018-04-21] MEDS: OCTREOTIDE ACETATE 500 MCG in 0.9 % SODIUM CHLORIDE 100 ML IV SCH ×2 (12:37→18:31)
[2018-04-21] MEDS: SODIUM CHLORIDE 0.9% 1000ML 1,000 ML IV SCH (12:38)
[2018-04-21] MEDS: THIAMINE HCL 100 MG TAB PO SCH (12:39)
[2018-04-21] MEDS: FOLIC ACID 1 MG TAB PO SCH (12:39)
[2018-04-21] MEDS: ACETAMINOPHEN W/CODEINE #3 1 TAB PO PRN (12:53)
[2018-04-21 16:07] LABS: Amphetamines+Metham, Urine Neg (Neg); Barbiturates, Urine Neg (Neg); Benzodiazepine, Urine Neg (Neg); Cocaine, Urine Neg (Neg); MDMA (Ecstacy), Urine Neg (Neg); Methadone, Urine Neg (Neg); Opiate, Urine Pos (Neg); Phencyclidine, Urine Neg (Neg)
[2018-04-21 16:13] LABS: Hematocrit (blood only) 23.4 % (37-47); Hemoglobin 7.7 g/dL (12.0-16.0)
[2018-04-21] MEDS ORDERED: SODIUM CHLORIDE 0.9% 250 ML IV PRN (17:34)
[2018-04-21] MEDS: RASPBERRY SYRUP 5 ML UDP PO SCH (18:00)
[2018-04-21] MEDS: VANCOMYCIN HCL 125 MG/2.5ML SOLN PO SCH (18:00)
[2018-04-21] MEDS: RIFAXIMIN 550 MG TABLET PO SCH (20:55)
[2018-04-21 22:07] LABS: Hematocrit (blood only) 27.9 % (37-47); Hemoglobin 9.2 g/dL (12.0-16.0)
[2018-04-22] MEDS: ACETAMINOPHEN W/CODEINE #3 1 TAB PO PRN (00:51)
[2018-04-22] MEDS: SODIUM CHLORIDE 0.9% 1000ML 1,000 ML IV SCH ×2 (00:51→13:50)
[2018-04-22] MEDS: RASPBERRY SYRUP 5 ML UDP PO SCH ×5 (00:52→23:25)
[2018-04-22] MEDS: VANCOMYCIN HCL 125 MG/2.5ML SOLN PO SCH ×5 (00:54→23:24)
[2018-04-22] MEDS: PANTOprazole 40 MG in DEXTROSE 5% 100 ML IV SCH ×2 (04:25→09:35)
[2018-04-22 04:56] LABS: Hematocrit (blood only) 28.4 % (37-47); Hemoglobin 9.5 g/dL (12.0-16.0); Mean Corpuscular Hgb Conc 33.5 g/dL (32-36); Mean Corpuscular Volume 84.5 fL (80-100); Mean Platelet Volume 10.7 fL (7.4-10.4); Nucleated RBC % (auto) 1.1 %; Platelet Count 168 K/uL (130-400); RDW Coefficient of Variation 16.6 % (11.5-14.5); Red Blood Count 3.36 M/uL (4.2-5.4); White Blood Count 9.64 K/uL (4.8-10.8)
[2018-04-22] MEDS: OCTREOTIDE ACETATE 500 MCG in 0.9 % SODIUM CHLORIDE 100 ML IV SCH (05:00)
[2018-04-22 05:38] LABS: Albumin Globulin Ratio 0.5 (0.9-2); Albumin Level 1.8 gm/dl (3.4-5.0); BUN Creatinine Ratio 25.2 (10-20); Bilirubin,Total 4.4 mg/dl (0.2-1); Calcium 7.7 mg/dl (8.5-10.1); Creatinine Clr Calc Pharmacy 51.6 ml/min; Est GFR (African American) 71.7; Est GFR (Non-African American) 61.8; Globulin 3.3 gm/dl (2.5-4.0); Potassium 4.4 mmol/L (3.5-5.1); Total Protein 5.1 gm/dl (6.4-8.2)
[2018-04-22] MEDS: RIFAXIMIN 550 MG TABLET PO SCH ×2 (07:48→21:10)
[2018-04-22] MEDS: MAGNESIUM OXIDE 400 MG TAB PO SCH (07:48)
[2018-04-22] MEDS: THIAMINE HCL 100 MG TAB PO SCH (07:48)
[2018-04-22] MEDS: FOLIC ACID 1 MG TAB PO SCH (07:48)
--- NOTE | 2018-04-22 08:09 | Anesthesiology Consultation ---
Date of Service April 22, 2018 Assessment & Plan (1) Encounter for pre-operative examination: Chart Review Chart Review: Acceptable Risk for Surgery ASA [id number] Proposed Anesthesia Anesthesia Type: MAC NPO Date Last Intake of Fluids: 04/21/18 Time Last Intake of Fluids: 23:59 Date Last Intake of Solids: 04/21/18 Time Last Intake of Solids: 23:59 History Surgery Operation Date: 04/22/18 11:30 Proposed Procedures p Esophagogastroduodenoscopy Dr [place] Lozano MD Height/Weight Height: 4 ft 11 in Weight: 73.9 kg Allergies Allergy/AdvReac Type Severity Reaction Status Date / Time lactulose AdvReac Severe severe Verified 04/21/18 06:55 loose diarrhea Medications Home Medications Medication Instructions Recorded Confirmed Last Taken thiamine HCl (vitamin B1) [Vitamin 100 mg PO QAM #0 tab 03/13/18 04/21/18 Unknown B-1] spironolactone 200 mg PO DAILY 04/03/18 04/21/18 Unknown furosemide 40 mg PO QAM 30 Days #30 tab 04/10/18 04/21/18 Unknown pantoprazole 40 mg PO QAM 30 Days #30 tab 04/10/18 04/21/18 Unknown propranolol 40 mg PO QAM 30 Days #15 tab 04/10/18 04/21/18 Unknown folic acid 1 mg PO DAILY 04/21/18 04/21/18 Unknown magnesium oxide 400 mg PO DAILY 04/21/18 04/21/18 Unknown rifaximin 550 mg PO BID 04/21/18 04/21/18 Unknown vancomycin 125 mg PO Q6H 04/21/18 04/21/18 Unknown Active Medications Generic Name Dose Route Start Last Admin Trade Name Freq PRN Reason Stop Dose Admin Acetaminophen/Codeine Phosphate 1 tab 04/21/18 11:40 04/22/18 00:51 Tylenol W/Codeine #3 PO 05/21/18 11:39 1 tab Q6H PRN Administration Pain Folic Acid 1 mg 04/21/18 10:45 04/22/18 07:48 Folvite PO 05/21/18 10:44 1 mg DAILY PHILIPP Administration Pantoprazole Sodium 40 mg/ 100 mls @ 20 mls/hr 04/21/18 07:00 04/22/18 09:35 Dextrose IV 05/21/18 06:59 20 mls/hr Q5H PHILIPP Administration Octreotide Acetate 500 mcg/ 105 mls @ 10.5 mls/hr 04/21/18 08:30 04/22/18 05: 00 Sodium Chloride IV 05/21/18 08:29 50 mcg/hr .Q10H PHILIPP 10.5 mls/hr Administration 50 MCG/HR Sodium Chloride 1,000 mls @ 80 mls/hr 04/21/18 10:39 04/22/18 00:51 Nss 1000ml IV 05/21/18 10:38 80 mls/hr .[id number] PHILIPP Administration Magnesium Oxide 400 mg 04/22/18 09:00 04/22/18 07:48 Mag-Ox PO 05/22/18 08:59 400 mg DAILY PHILIPP Administration Miscellaneous 1 ea 04/21/18 16:00 04/22/18 00:54 Order Awaiting Action N/A 05/21/18 15:59 Not Given QS PHILIPP Raspberry 5 ml 04/21/18 18:00 04/22/18 06:31 Raspberry PO 05/05/18 17:59 5 ml Q6 PHILIPP Administration Rifaximin 550 mg 04/21/18 21:00 04/22/18 07:48 Xifaxan PO 05/21/18 20:59 550 mg BID PHILIPP Administration Thiamine HCl 100 mg 04/21/18 10:45 04/22/18 07:48 Vitamin B-1 PO 05/21/18 10:44 100 mg QAM PHILIPP Administration Vancomycin HCl 125 mg 04/21/18 18:00 04/22/18 06:31 Vancomycin Hcl PO 05/01/18 17:59 125 mg Q6 PHILIPP Administration Past Medical History Medical History Clostridium difficile infection (Chronic) Alcoholic cirrhosis of liver (Chronic) Anemia (Acute) Alcohol abuse (Chronic) Essential tremor (Chronic) On propanolol Telangiectasia (Chronic) Alcohol dependence (Inactive) Alcohol withdrawal (Inactive) Altered mental status (Inactive) Anasarca (Inactive) Anemia (Inactive) DVT prophylaxis (Inactive) Decompensated hepatic cirrhosis (Inactive) ETOH abuse (Inactive) Elevated INR (Inactive) Encephalopathy, hepatic (Inactive) Encounter for pre-operative examination (Inactive) Enterococcal infection (Inactive) GI bleed (Inactive) Hyperammonemia (Inactive) Hyperbilirubinemia (Inactive) Jaundice (Inactive) Liver cirrhosis (Inactive) Severe anemia (Inactive) s/p 3 units of PRBCs transfusion Skin ulcer of buttock, limited to breakdown of skin (Inactive) UTI (urinary tract infection) due to Enterococcus (Inactive) Weakness (Inactive) Past Family History Family History Other No pertinent family history Past Surgical History Surgical History History of cataract surgery (Resolved) Social History Smoking Status: Never smoker Hx Alcohol Use: Yes (History of heavy alcohol use) Alcohol type: hard liquor and other alcohol intake frequency: other Alcohol Intake Frequency Comment: 06/16 Hx Substance Use: No Exercise / Class Metabolic Activity III < 4 Walking/Shop/Light housework Physical Exam Vital Signs Last Vital Signs Temp 97.9 F 04/22/18 07:56 Pulse 87 04/22/18 08:31 Resp 16 04/22/18 08:31 BP 119/73 04/22/18 08:31 Pulse Ox 94 04/22/18 08:31 ENMT Mouth: + chipped teeth Thyromental Distance: > or= 3.5 Finger Breadths Mallampati Class: III Respiratory normal respiratory effort Auscultation: lungs clear to auscultation bilaterally Cardiovascular Rate/Rhythm: + tachycardic Testing Electrocardiogram Date: 04/21/18 Findings: + ST @ (107 bpm) Chest X-Ray Date: 04/21/18 Findings: + NAD Laboratory Results 04/22/18 04:19 04/22/18 04:19 Blood Type B Positive 04/21/18 06:42 Antibody Screen NEGATIVE 04/21/18 06:42 PT 13.2 Seconds (9.0-12.0) H 04/21/18 06:42 INR 1.3 (0.9-1.1) H 04/21/18 06:42 APTT 21.3 Seconds (21.0-31.0) 04/21/18 06:42
--- NOTE | 2018-04-22 09:30 | History & Physical Bridge Note ---
Date of Service April 22, 2018 History & Physical Bridge Note I have examined the patient, reviewed the History & Physical and in the interval since the performance of the History & Physical I have noted the following changes of clinical significance: no changes noted No acute events overnight. VS stable, AM labs reviewed. Pt received 4U PRBC transfusion, Hgb improved from 4 -> 9.5. Pt denies any n/v, abd pain. No stool output overnight. Exam: AAOx3, in no acute distress. Clear to auscultation bilateral lungs, no respiratory distress noted. HRR no murmur or gallops. Abd soft, non tender, BS present. + generalized edema x 4 extremities. Plan: - Keep NPO for EGD procedure by Dr. Lozano - May continue PPI and Octreotide gtts for now until EGD completed.
--- NOTE | 2018-04-22 11:52 | Critical Care Progress Note ---
Date of Service April 22, 2018 Assessment & Plan (1) GI bleed: Impression: 1. GI bleeding, likely related to AVM given her history of [id number]. 2. Alcoholic cirrhosis. 3. Alcohol abuse. 4. AK I. 5. History of C. difficile colitis, inactive. Plan: 1. Hematocrit has been stable, will check it this afternoon and tomorrow morning. 2. Appreciate Dr. Lozano input from GI. EGD ongoing. 3. I would remove the central line if not needed. 4. Blood transfusion as needed. 5. Keep hematocrit above than 21. 6. IV fluid. 7. Protonix drip until stated otherwise by GI. 8. Octreotide drip until stated otherwise by GI. 9. Venodyne boots if tolerable. 10. Discussed with the at the bedside in details. 11. Start the patient on Vanco p.o. 12. Discussed with the staff in details. Critical care time spent with the patient excluding procedure time was 45 minutes. Subjective Stable overnight, she is bothered only with the central line site and IV sites, otherwise no nausea or vomiting, no hematemesis, no melena, no bowel movement regularly. Going for EGD this morning. Physical Exam 2 Vital Signs (Past 24 Hours): Last Vital Signs Temp 36.3 C L 04/22/18 11:29 Pulse 96 H 04/22/18 11:29 Resp 20 04/22/18 11:29 BP 136/99 04/22/18 11:29 Pulse Ox 94 04/22/18 11:29 Physical Exam: Vital signs are stable, S1-S2 regular rate and rhythm, lungs are clear, abdomen is soft and benign, telangiectasia in the lower abdomen to worsen her lower extremities, central line and IV sites appears without induration. Neurologically she is intact. Results & Data Laboratory Results Labs were reviewed, showing stable WBC, hematocrit is stable, platelets also are stable. Ammonia level of 60, albumin is 1.8. Diagnostic Findings No new imaging.
--- NOTE | 2018-04-22 12:52 | GI REPORT ---
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 Estimated blood loss: None. Estimated Blood Loss: Estimated blood loss: none. Procedure: Pre-Anesthesia Assessment: - Prior to the procedure, a History and Physical was performed, and patient medications, allergies and sensitivities were reviewed. The patient's tolerance of previous anesthesia was reviewed. - ASA Grade Assessment: III - A patient with severe systemic disease. After obtaining informed consent, the endoscope was passed under direct vision. Throughout the procedure, the patient's blood pressure, pulse, and oxygen saturations were monitored continuously. The Endoscope was introduced through the mouth, and advanced to the third part of duodenum. The upper GI endoscopy was accomplished with ease. The patient tolerated the procedure well. Findings: The examined esophagus was normal. There is no endoscopic evidence of varices in the entire esophagus. The Z-line was regular and was found 34 cm from the incisors. Extensive angioectasias were found in the cardia and in the gastric antrum. There were several areas with fresh adherent clot. Coagulation for hemostasis using argon plasma at 1.4 liters/minute and 35 nuñez was successful. Multiple angioectasias without bleeding were found in the entire duodenum. Impression: - Normal esophagus. - Z-line regular, 34 cm from the incisors. - Multiple angioectasias in the stomach with several showing signs of recent bleeding. Treated with argon plasma coagulation (APC). - Multiple non-bleeding angioectasias in the duodenum. - No specimens collected. Recommendation: - Return patient to ICU for ongoing care. Ernesto Lozano M.D. Ernesto Lozano MD 04/22/2018 12:52:03 PM This report has been signed electronically. Note Initiated On: 04/22/2018 12:20 PM Number of Addenda: 0 I attest to the content of the Intraoperative Record and orders documented therein, exceptions below {[id number]}
[2018-04-22] MEDS ORDERED: PHENYLEPHRINE 100MCG/ML 5ML SYR ONE (12:54)
[2018-04-22] MEDS ORDERED: LIDOCAINE HCL 2% 2 ML VIAL/AMP(20MG/ML) INFIL ONE (12:54)
[2018-04-22] MEDS ORDERED: PROPOFOL IV EMULSION 10 MG/ML 20 ML VIAL IV ONE (12:54)
--- NOTE | 2018-04-22 13:23 | Anesthesiology Progress Note ---
Date of Service April 22, 2018 Anesthesia Post Procedure Vital Signs Vital Signs: Temp Pulse Pulse Resp BP BP Pulse Ox 04/22/18 13:15 92 H 20 128/80 96 04/22/18 13:03 94 H 20 105/73 95 04/22/18 11:29 97.3 F L 96 H 20 136/99 94 04/22/18 11:00 88 28 H 94 04/22/18 10:00 88 15 95 04/22/18 09:30 89 17 127/85 97 04/22/18 09:01 101 H 19 127/85 96 04/22/18 09:00 85 15 93 04/22/18 08:33 88 15 93 04/22/18 08:31 87 16 119/73 94 04/22/18 08:01 104 H 23 147/86 H 97 04/22/18 07:56 97.9 F 99 H 22 139/85 97 04/22/18 07:01 89 24 95 04/22/18 06:31 90 21 130/81 95 04/22/18 06:01 86 18 126/76 95 04/22/18 05:31 89 17 114/74 96 04/22/18 05:01 98 H 24 150/87 H 96 04/22/18 05:00 93 H 32 H 96 04/22/18 04:31 87 32 H 131/86 94 04/22/18 04:01 86 34 H 129/81 93 04/22/18 04:00 98.1 F 93 H 17 93 04/22/18 03:37 92 H 23 129/78 93 04/22/18 03:31 83 23 129/78 93 04/22/18 03:01 92 H 27 H 136/87 96 04/22/18 03:00 90 32 H 95 04/22/18 02:31 94 H 17 127/74 92 04/22/18 02:01 82 25 H 131/82 97 04/22/18 02:00 84 20 97 04/22/18 01:31 86 29 H 134/80 96 04/22/18 01:01 87 17 135/71 95 04/22/18 01:00 93 H 23 94 04/22/18 00:31 98.2 F 83 22 129/78 94 04/22/18 00:01 80 18 130/75 93 01/07/19 23:31 82 19 130/77 94 04/21/18 23:01 78 18 136/78 95 04/21/18 22:31 80 21 122/82 95 04/21/18 22:01 78 19 125/83 94 04/21/18 22:00 76 18 95 04/21/18 21:31 91 H 16 131/80 95 04/21/18 21:01 81 16 120/76 93 04/21/18 21:00 74 14 92 04/21/18 20:32 81 21 94 04/21/18 20:31 78 24 124/68 94 04/21/18 20:01 97.9 F 76 16 122/72 94 04/21/18 19:31 77 21 122/73 95 04/21/18 19:01 97.9 F 77 20 107/68 94 04/21/18 18:45 98.4 F 72 19 129/70 94 04/21/18 18:15 98.4 F 84 18 125/72 96 04/21/18 18:00 98.4 F 85 18 129/72 95 04/21/18 17:44 98.4 F 83 18 116/73 94 04/21/18 17:30 98.2 F 97 H 18 116/72 94 04/21/18 17:00 98.4 F 87 20 119/72 94 04/21/18 16:30 98.2 F 90 18 125/78 95 04/21/18 16:00 98.4 F 86 93 H 18 119/72 119/72 95 04/21/18 15:30 98.4 F 93 H 20 107/66 95 04/21/18 15:15 98.2 F 92 H 18 115/74 94 04/21/18 14:54 98.4 F 99 H 22 114/86 96 04/21/18 14:24 98.2 F 100 H 26 H 109/69 97 04/21/18 14:09 98.2 F 108 H 19 95/53 L 96 04/21/18 14:05 98.4 F 87 14 105/60 96 04/21/18 13:53 98.4 F 97 H 25 H 96/55 L 96 Pain Intensity Bilateral Lower Leg: Pain Intensity: 4 Notes Mental Status: alert / awake / arousable and participated in evaluation Patient Amnestic to Procedure: Yes Nausea / Vomiting: adequately controlled Pain: adequately controlled Airway Patency, RR, SpO2: stable & adequate BP & HR: stable & adequate Hydration State: stable & adequate Anesthetic Complications: no major complications apparent and Pt Satisfied with anesthetic care
[2018-04-22] MEDS: MULTIVITAMIN TAB PO SCH (13:52)
--- NOTE | 2018-04-22 14:49 | Emergency Department Note ---
Entered by Rashmi France acting as a scribe for History of Present Illness General Chief complaint: Weakness Stated complaint: WEAKNESS Time Seen by Provider: 04/21/18 06:43 Source: patient History of Present Illness Onset (ago): day(s) (yesterday) Pain Consistency: + other (worsening) Maximum Pain Intensity: 0 Quality: + other (weakness) Exacerbated By: + movement Associated symptoms: + rash, + shortness of breath and + other (melena) The patient is a 62 year old female who presents to the Emergency Room with complaints of worsening weakness starting yesterday. The patient states that she has a history of anemia and has received multiple transfusions in the past. She states that she currently has had melena with the weakness and notes that when this has happened in the past, they have worked her up for a GI bleed, but have never found anything. She states that it is worse with exertion. The patient complains of shortness of breath when talking too much. She notes that she has a rash on her legs that she has had since she was a kid and they deemed it as congenital. The patient denies the use of blood thinner and using O2 at home. Home Medications Home Medications Medication Instructions Recorded Confirmed Type thiamine HCl (vitamin B1) [Vitamin 100 mg PO QAM #0 tab 03/13/18 04/21/18 Rx B-1] spironolactone 200 mg PO DAILY 04/03/18 04/21/18 History furosemide 40 mg PO QAM 30 Days #30 tab 04/10/18 04/21/18 Rx pantoprazole 40 mg PO QAM 30 Days #30 tab 04/10/18 04/21/18 Rx propranolol 40 mg PO QAM 30 Days #15 tab 04/10/18 04/21/18 Rx folic acid 1 mg PO DAILY 04/21/18 04/21/18 History magnesium oxide 400 mg PO DAILY 04/21/18 04/21/18 History rifaximin 550 mg PO BID 04/21/18 04/21/18 History vancomycin 125 mg PO Q6H 04/21/18 04/21/18 History Allergies Allergy/AdvReac Type Severity Reaction Status Date / Time lactulose AdvReac Severe severe Verified 04/21/18 06:55 loose diarrhea Past Med/Surg History Medical History Clostridium difficile infection (Chronic) Alcoholic cirrhosis of liver (Chronic) Anemia (Acute) Alcohol abuse (Chronic) Essential tremor (Chronic) On propanolol Telangiectasia (Chronic) Alcohol dependence (Inactive) Alcohol withdrawal (Inactive) Altered mental status (Inactive) Anasarca (Inactive) Anemia (Inactive) DVT prophylaxis (Inactive) Decompensated hepatic cirrhosis (Inactive) ETOH abuse (Inactive) Elevated INR (Inactive) Encephalopathy, hepatic (Inactive) Encounter for pre-operative examination (Inactive) Enterococcal infection (Inactive) GI bleed (Inactive) Hyperammonemia (Inactive) Hyperbilirubinemia (Inactive) Jaundice (Inactive) Liver cirrhosis (Inactive) Severe anemia (Inactive) s/p 3 units of PRBCs transfusion Skin ulcer of buttock, limited to breakdown of skin (Inactive) UTI (urinary tract infection) due to Enterococcus (Inactive) Weakness (Inactive) Surgical History History of cataract surgery (Resolved) Family History Other No pertinent family history Social History marital status: Current Living Situation: Spouse current occupational status: unemployed Other Information That Helps Us Care for You: No Feels Safe at Home: Yes Safety Concerns: Feels Safe At This Time Smoking Status: Never smoker Hx Alcohol Use: Yes (History of heavy alcohol use) Alcohol type: hard liquor and other Alcohol Intake Frequency: other Hx Substance Use: No Beliefs That Will Affect Care: None Communication Ability: Effective Review of Systems See HPI for pertinent positives & negatives. and A total of 10 systems reviewed and were otherwise negative Physical Exam Vital Signs Vital Signs - 24 hr 04/21/18 14:54 04/21/18 15:15 04/21/18 15:30 Temperature 36.9 C 36.8 C 36.9 C Temperature Source Oral Oral Oral Central Venous (RA) Pressure (mmHg) Pulse Rate 99 H Pulse Rate [Apical] 92 H 93 H Pulse Rhythm Regular Pulse Rhythm [Apical] Regular Regular Pulse Strength Normal Pulse Strength [Apical] Normal Normal Respiratory Rate 22 18 20 Respiratory Effort / Characteristics Non-Labored Non-Labored Respiratory Depth Normal Normal Respiratory Pattern Regular Regular Blood Pressure 114/86 Blood Pressure [Right Arm] 115/74 107/66 Blood Pressure Mean 95 Blood Pressure Mean [Right Arm] 87 79 Blood Pressure Position Lying Blood Pressure Position [Right Arm] Lying Lying Pulse Oximetry 96 94 95 Oxygen Delivery Method Room Air Room Air Oxygen Flow Rate 2 04/21/18 16:00 04/21/18 16:30 04/21/18 17:00 Temperature 36.9 C 36.8 C 36.9 C Temperature Source Oral Oral Oral Central Venous (RA) Pressure (mmHg) Pulse Rate 86 90 87 Pulse Rate [Apical] 93 H Pulse Rhythm Pulse Rhythm [Apical] Regular Pulse Strength Pulse Strength [Apical] Normal Respiratory Rate 18 18 20 Respiratory Effort / Characteristics Non-Labored Respiratory Depth Normal Respiratory Pattern Regular Blood Pressure 119/72 125/78 119/72 Blood Pressure [Right Arm] 119/72 Blood Pressure Mean 87 93 87 Blood Pressure Mean [Right Arm] 87 Blood Pressure Position Blood Pressure Position [Right Arm] Lying Pulse Oximetry 95 95 94 Oxygen Delivery Method Room Air Oxygen Flow Rate 04/21/18 17:30 04/21/18 17:44 04/21/18 18:00 Temperature 36.8 C 36.9 C 36.9 C Temperature Source Oral Oral Oral Central Venous (RA) Pressure (mmHg) Pulse Rate 97 H 83 Pulse Rate [Apical] 85 Pulse Rhythm Regular Pulse Rhythm [Apical] Regular Pulse Strength Normal Pulse Strength [Apical] Normal Respiratory Rate 18 18 18 Respiratory Effort / Characteristics Non-Labored Respiratory Depth Normal Respiratory Pattern Blood Pressure 116/72 116/73 Blood Pressure [Right Arm] 129/72 Blood Pressure Mean 86 87 Blood Pressure Mean [Right Arm] 91 Blood Pressure Position Lying Blood Pressure Position [Right Arm] Lying Pulse Oximetry 94 94 95 Oxygen Delivery Method Room Air Oxygen Flow Rate 04/21/18 18:15 04/21/18 18:19 04/21/18 18:45 Temperature 36.9 C 36.9 C Temperature Source Oral Oral Central Venous (RA) Pressure (mmHg) 5 Pulse Rate Pulse Rate [Apical] 84 72 Pulse Rhythm Pulse Rhythm [Apical] Regular Regular Pulse Strength Pulse Strength [Apical] Normal Normal Respiratory Rate 18 19 Respiratory Effort / Characteristics Non-Labored Non-Labored Respiratory Depth Normal Normal Respiratory Pattern Blood Pressure Blood Pressure [Right Arm] 125/72 129/70 Blood Pressure Mean Blood Pressure Mean [Right Arm] 89 89 Blood Pressure Position Blood Pressure Position [Right Arm] Lying Lying Pulse Oximetry 96 94 Oxygen Delivery Method Room Air Room Air Oxygen Flow Rate 04/21/18 19:01 04/21/18 19:31 04/21/18 20:00 Temperature 36.6 C Temperature Source Central Venous (RA) Pressure (mmHg) 7 H 8 H Pulse Rate 77 77 Pulse Rate [Apical] Pulse Rhythm Pulse Rhythm [Apical] Pulse Strength Pulse Strength [Apical] Respiratory Rate 20 21 Respiratory Effort / Characteristics Non-Labored Spontaneous Respiratory Depth Normal Respiratory Pattern Regular Blood Pressure 107/68 122/73 Blood Pressure [Right Arm] Blood Pressure Mean 81 89 Blood Pressure Mean [Right Arm] Blood Pressure Position Blood Pressure Position [Right Arm] Pulse Oximetry 94 95 Oxygen Delivery Method Oxygen Flow Rate 04/21/18 20:01 04/21/18 20:31 04/21/18 20:32 Temperature 36.6 C Temperature Source Central Venous (RA) Pressure (mmHg) 6 36 H Pulse Rate 76 78 81 Pulse Rate [Apical] Pulse Rhythm Pulse Rhythm [Apical] Pulse Strength Pulse Strength [Apical] Respiratory Rate 16 24 21 Respiratory Effort / Characteristics Respiratory Depth Respiratory Pattern Blood Pressure 122/72 124/68 Blood Pressure [Right Arm] Blood Pressure Mean 88 86 Blood Pressure Mean [Right Arm] Blood Pressure Position Blood Pressure Position [Right Arm] Pulse Oximetry 94 94 94 Oxygen Delivery Method Oxygen Flow Rate 04/21/18 21:00 04/21/18 21:01 04/21/18 21:31 Temperature Temperature Source Central Venous (RA) Pressure (mmHg) 8 H 7 H 5 Pulse Rate 74 81 91 H Pulse Rate [Apical] Pulse Rhythm Pulse Rhythm [Apical] Pulse Strength Pulse Strength [Apical] Respiratory Rate 14 16 16 Respiratory Effort / Characteristics Respiratory Depth Respiratory Pattern Blood Pressure 120/76 131/80 Blood Pressure [Right Arm] Blood Pressure Mean 90 97 Blood Pressure Mean [Right Arm] Blood Pressure Position Blood Pressure Position [Right Arm] Pulse Oximetry 92 93 95 Oxygen Delivery Method Oxygen Flow Rate 04/21/18 22:00 04/21/18 22:01 04/21/18 22:31 Temperature Temperature Source Central Venous (RA) Pressure (mmHg) 9 H 9 H 10 H Pulse Rate 76 78 80 Pulse Rate [Apical] Pulse Rhythm Pulse Rhythm [Apical] Pulse Strength Pulse Strength [Apical] Respiratory Rate 18 19 21 Respiratory Effort / Characteristics Respiratory Depth Respiratory Pattern Blood Pressure 125/83 122/82 Blood Pressure [Right Arm] Blood Pressure Mean 97 95 Blood Pressure Mean [Right Arm] Blood Pressure Position Blood Pressure Position [Right Arm] Pulse Oximetry 95 94 95 Oxygen Delivery Method Oxygen Flow Rate 04/21/18 23:01 04/21/18 23:31 04/22/18 00:01 Temperature Temperature Source Central Venous (RA) Pressure (mmHg) 7 H 5 9 H Pulse Rate 78 82 80 Pulse Rate [Apical] Pulse Rhythm Pulse Rhythm [Apical] Pulse Strength Pulse Strength [Apical] Respiratory Rate 18 19 18 Respiratory Effort / Characteristics Respiratory Depth Respiratory Pattern Blood Pressure 136/78 130/77 130/75 Blood Pressure [Right Arm] Blood Pressure Mean 97 94 93 Blood Pressure Mean [Right Arm] Blood Pressure Position Blood Pressure Position [Right Arm] Pulse Oximetry 95 94 93 Oxygen Delivery Method Oxygen Flow Rate 04/22/18 00:31 04/22/18 01:00 04/22/18 01:01 Temperature 36.8 C Temperature Source Central Venous (RA) Pressure (mmHg) 7 H 7 H 9 H Pulse Rate 83 93 H 87 Pulse Rate [Apical] Pulse Rhythm Pulse Rhythm [Apical] Pulse Strength Pulse Strength [Apical] Respiratory Rate 22 23 17 Respiratory Effort / Characteristics Respiratory Depth Respiratory Pattern Blood Pressure 129/78 135/71 Blood Pressure [Right Arm] Blood Pressure Mean 95 92 Blood Pressure Mean [Right Arm] Blood Pressure Position Blood Pressure Position [Right Arm] Pulse Oximetry 94 94 95 Oxygen Delivery Method Oxygen Flow Rate 04/22/18 01:31 04/22/18 02:00 04/22/18 02:01 Temperature Temperature Source Central Venous (RA) Pressure (mmHg) 6 6 4 Pulse Rate 86 84 82 Pulse Rate [Apical] Pulse Rhythm Pulse Rhythm [Apical] Pulse Strength Pulse Strength [Apical] Respiratory Rate 29 H 20 25 H Respiratory Effort / Characteristics Respiratory Depth Respiratory Pattern Blood Pressure 134/80 131/82 Blood Pressure [Right Arm] Blood Pressure Mean 98 98 Blood Pressure Mean [Right Arm] Blood Pressure Position Blood Pressure Position [Right Arm] Pulse Oximetry 96 97 97 Oxygen Delivery Method Oxygen Flow Rate 04/22/18 02:31 04/22/18 03:00 04/22/18 03:01 Temperature Temperature Source Central Venous (RA) Pressure (mmHg) 9 H 7 H 6 Pulse Rate 94 H 90 92 H Pulse Rate [Apical] Pulse Rhythm Pulse Rhythm [Apical] Pulse Strength Pulse Strength [Apical] Respiratory Rate 17 32 H 27 H Respiratory Effort / Characteristics Respiratory Depth Respiratory Pattern Blood Pressure 127/74 136/87 Blood Pressure [Right Arm] Blood Pressure Mean 91 103 Blood Pressure Mean [Right Arm] Blood Pressure Position Blood Pressure Position [Right Arm] Pulse Oximetry 92 95 96 Oxygen Delivery Method Oxygen Flow Rate 04/22/18 03:31 04/22/18 03:37 04/22/18 04:00 Temperature 36.7 C Temperature Source Central Venous (RA) Pressure (mmHg) 5 5 4 Pulse Rate 83 92 H 93 H Pulse Rate [Apical] Pulse Rhythm Pulse Rhythm [Apical] Pulse Strength Pulse Strength [Apical] Respiratory Rate 23 23 17 Respiratory Effort / Characteristics Respiratory Depth Respiratory Pattern Blood Pressure 129/78 129/78 Blood Pressure [Right Arm] Blood Pressure Mean 95 95 Blood Pressure Mean [Right Arm] Blood Pressure Position Blood Pressure Position [Right Arm] Pulse Oximetry 93 93 93 Oxygen Delivery Method Oxygen Flow Rate 04/22/18 04:01 04/22/18 04:31 04/22/18 05:00 Temperature Temperature Source Central Venous (RA) Pressure (mmHg) 7 H 7 H 7 H Pulse Rate 86 87 93 H Pulse Rate [Apical] Pulse Rhythm Pulse Rhythm [Apical] Pulse Strength Pulse Strength [Apical] Respiratory Rate 34 H 32 H 32 H Respiratory Effort / Characteristics Respiratory Depth Respiratory Pattern Blood Pressure 129/81 131/86 Blood Pressure [Right Arm] Blood Pressure Mean 97 101 Blood Pressure Mean [Right Arm] Blood Pressure Position Blood Pressure Position [Right Arm] Pulse Oximetry 93 94 96 Oxygen Delivery Method Oxygen Flow Rate 04/22/18 05:01 04/22/18 05:31 04/22/18 06:01 Temperature Temperature Source Central Venous (RA) Pressure (mmHg) 6 4 5 Pulse Rate 98 H 89 86 Pulse Rate [Apical] Pulse Rhythm Pulse Rhythm [Apical] Pulse Strength Pulse Strength [Apical] Respiratory Rate 24 17 18 Respiratory Effort / Characteristics Respiratory Depth Respiratory Pattern Blood Pressure 150/87 H 114/74 126/76 Blood Pressure [Right Arm] Blood Pressure Mean 108 87 92 Blood Pressure Mean [Right Arm] Blood Pressure Position Blood Pressure Position [Right Arm] Pulse Oximetry 96 96 95 Oxygen Delivery Method Oxygen Flow Rate 04/22/18 06:31 04/22/18 07:01 04/22/18 07:56 Temperature 36.6 C Temperature Source Central Venous (RA) Pressure (mmHg) 7 H 12 H 11 H Pulse Rate 90 89 99 H Pulse Rate [Apical] Pulse Rhythm Pulse Rhythm [Apical] Pulse Strength Pulse Strength [Apical] Respiratory Rate 21 24 22 Respiratory Effort / Characteristics Respiratory Depth Respiratory Pattern Blood Pressure 130/81 139/85 Blood Pressure [Right Arm] Blood Pressure Mean 97 103 Blood Pressure Mean [Right Arm] Blood Pressure Position Blood Pressure Position [Right Arm] Pulse Oximetry 95 95 97 Oxygen Delivery Method Room Air Oxygen Flow Rate 04/22/18 08:00 04/22/18 08:01 04/22/18 08:31 Temperature Temperature Source Central Venous (RA) Pressure (mmHg) 8 H 13 H 11 H Pulse Rate 104 H 87 Pulse Rate [Apical] Pulse Rhythm Pulse Rhythm [Apical] Pulse Strength Pulse Strength [Apical] Respiratory Rate 23 16 Respiratory Effort / Characteristics Respiratory Depth Respiratory Pattern Blood Pressure 147/86 H 119/73 Blood Pressure [Right Arm] Blood Pressure Mean 106 88 Blood Pressure Mean [Right Arm] Blood Pressure Position Blood Pressure Position [Right Arm] Pulse Oximetry 97 94 Oxygen Delivery Method Oxygen Flow Rate 04/22/18 08:33 04/22/18 09:00 04/22/18 09:01 Temperature Temperature Source Central Venous (RA) Pressure (mmHg) 12 H 7 H 8 H Pulse Rate 88 85 101 H Pulse Rate [Apical] Pulse Rhythm Pulse Rhythm [Apical] Pulse Strength Pulse Strength [Apical] Respiratory Rate 15 15 19 Respiratory Effort / Characteristics Respiratory Depth Respiratory Pattern Blood Pressure 127/85 Blood Pressure [Right Arm] Blood Pressure Mean 99 Blood Pressure Mean [Right Arm] Blood Pressure Position Blood Pressure Position [Right Arm] Pulse Oximetry 93 93 96 Oxygen Delivery Method Room Air Oxygen Flow Rate 04/22/18 09:30 04/22/18 10:00 04/22/18 11:00 Temperature Temperature Source Central Venous (RA) Pressure (mmHg) 8 H 9 H 10 H Pulse Rate 89 88 88 Pulse Rate [Apical] Pulse Rhythm Pulse Rhythm [Apical] Pulse Strength Pulse Strength [Apical] Respiratory Rate 17 15 28 H Respiratory Effort / Characteristics Respiratory Depth Respiratory Pattern Blood Pressure 127/85 Blood Pressure [Right Arm] Blood Pressure Mean 99 Blood Pressure Mean [Right Arm] Blood Pressure Position Blood Pressure Position [Right Arm] Pulse Oximetry 97 95 94 Oxygen Delivery Method Room Air Room Air Oxygen Flow Rate 04/22/18 11:29 04/22/18 13:03 04/22/18 13:15 Temperature 36.3 C L Temperature Source Axillary Central Venous (RA) Pressure (mmHg) Pulse Rate Pulse Rate [Apical] 96 H 94 H 92 H Pulse Rhythm Pulse Rhythm [Apical] Pulse Strength Pulse Strength [Apical] Respiratory Rate 20 20 20 Respiratory Effort / Characteristics Non-Labored Spontaneous Non-Labored Spontaneous Non-Labored Spontaneous Respiratory Depth Normal Normal Normal Respiratory Pattern Blood Pressure Blood Pressure [Right Arm] 136/99 105/73 128/80 Blood Pressure Mean Blood Pressure Mean [Right Arm] 111 83 96 Blood Pressure Position Blood Pressure Position [Right Arm] Sitting Sitting Sitting Pulse Oximetry 94 95 96 Oxygen Delivery Method Room Air Room Air Room Air Oxygen Flow Rate 04/22/18 13:32 Temperature Temperature Source Central Venous (RA) Pressure (mmHg) Pulse Rate Pulse Rate [Apical] 92 H Pulse Rhythm Pulse Rhythm [Apical] Pulse Strength Pulse Strength [Apical] Respiratory Rate 20 Respiratory Effort / Characteristics Non-Labored Spontaneous Respiratory Depth Normal Respiratory Pattern Blood Pressure Blood Pressure [Right Arm] 124/83 Blood Pressure Mean Blood Pressure Mean [Right Arm] 96 Blood Pressure Position Blood Pressure Position [Right Arm] Sitting Pulse Oximetry 96 Oxygen Delivery Method Room Air Oxygen Flow Rate GENERAL: Awake, alert, pale appearing, in no distress HENT: Normocephalic, atraumatic. Oropharynx unremarkable. EYES: Normal conjunctiva. Sclera non-icteric. NECK: Supple. No nuchal rigidity. FROM. No masses. RESPIRATORY: Clear to auscultation. No wheezes. No rales. Normal respiratory effort. CARDIAC: Normal rate. Normal rhythm. No murmurs. No rubs. Extremities warm and well perfused. Pulses equal. No JVD. GI: Soft, non-distended. No tenderness to palpation. No rebound or guarding. No masses. RECTAL: Black stool that is heme positive. MUSCULOSKELETAL: Atraumatic. Chest examination reveals no tenderness. The back is symmetrical on inspection without obvious abnormality. There is no CVA tenderness to palpation. No joint edema. LOWER EXTREMITIES: Calves are equal size bilaterally and non-tender. No edema. No discoloration. NEURO: Normal sensorium. No sensory or motor deficits noted. Course 0647: Past medical records reviewed. The patient was evaluated in room B12B, and a complete history and physical examination were performed. 0700: I reevaluated the patient and she signed a blood consent form at this time. 07: I discussed the patient's case [facility]. She states that she will further evaluate the patient, but would like GI consulted. 0724: I paged GI at this time. 0740: I discussed the patient's case with Dr. [facility]. He states that he will accept the patient to the unit. 0807: I reevaluated the patient and updated her in her test results. I discussed the treatment plan with her. She verbally agrees and understands. 0836: GI has still not returned the page. Consultations Consultation #1: I discussed the patient's case with [facility]. She states that she will further evaluate the patient, but would like GI consulted. Time: 07:22 Consultation #2: I discussed the patient's case with Dr. [facility]. He states that he will accept the patient to the unit. Time: 07:40 Administered Medications Acetaminophen/Codeine Phosphate (Tylenol W/Codeine #3) 1 tab PO Q6H PRN PRN Reason: Pain Stop: 05/21/18 11:39 Last Admin: 04/22/18 00:51 Dose: 1 tab Admin: 04/21/18 12:53 Dose: 1 tab Folic Acid (Folvite) 1 mg PO DAILY [facility] Stop: 05/21/18 10:44 Last Admin: 04/22/18 07:48 Dose: 1 mg Admin: 04/21/18 12:39 Dose: 1 mg Sodium Chloride (Nss 1000ml) 1,000 mls @ 80 mls/hr IV .[id number] [facility] Stop: 05/21/18 10:38 Last Admin: 04/22/18 13:50 Dose: 80 mls/hr Infusion: 04/22/18 13:50 Dose: 80 mls/hr Admin: 04/22/18 00:51 Dose: 80 mls/hr Infusion: 04/22/18 00:51 Dose: 0 mls/hr Admin: 04/21/18 12:38 Dose: 80 mls/hr Magnesium Oxide (Mag-Ox) 400 mg PO DAILY [facility] Stop: 05/22/18 08:59 Last Admin: 04/22/18 07:48 Dose: 400 mg Miscellaneous (Order Awaiting Action) 1 ea N/A QS [facility] Stop: 05/21/18 15:59 Last Admin: 04/22/18 12:45 Dose: Not Given Admin: 04/22/18 00:54 Dose: Not Given Admin: 04/21/18 16:22 Dose: Not Given Multivitamins ([facility]itamin Tab) [facility] Stop: 05/22/18 08:59 Last Admin: 04/22/18 13:52 Dose: Not Given Raspberry (Raspberry) 5 ml PO Q6 [facility] Stop: 05/05/18 17:59 Last Admin: 04/22/18 13:51 Dose: 5 ml Admin: 04/22/18 06:31 Dose: 5 ml Admin: 04/22/18 00:52 Dose: 5 ml Admin: 04/21/18 18:00 Dose: 5 ml Rifaximin (Xifaxan) 550 mg PO BID [facility] Stop: 05/21/18 20:59 Last Admin: 04/22/18 07:48 Dose: 550 mg Admin: 04/21/18 20:55 Dose: Not Given Thiamine HCl (Vitamin B-1) 100 mg PO QAM [facility] Stop: 05/21/18 10:44 Last Admin: 04/22/18 07:48 Dose: 100 mg Admin: 04/21/18 12:39 Dose: 100 mg Vancomycin HCl (Vancomycin Hcl) 125 mg PO Q6 [facility] Stop: 05/01/18 17:59 Last Admin: 04/22/18 13:53 Dose: 125 mg Admin: 04/22/18 06:31 Dose: 125 mg Admin: 04/22/18 00:54 Dose: 125 mg Admin: 04/21/18 18:00 Dose: 125 mg Discontinued Medications Hard Fat/Phenylephrine (Tobi-Synephrine 500mcg/5ml) Confirm Administered Dose 100 mcg .ROUTE .STK-MED ONE Stop: 04/22/18 12:55 Last Admin: 04/22/18 13:53 Dose: Not Given Pantoprazole Sodium (Protonix Bolus/Drip) 0 mls @ 1 mls/hr IV ONE STA Stop: 04/21/18 06:58 Last Admin: 04/21/18 09:02 Dose: Not Given Pantoprazole Sodium 40 mg/ (Dextrose) 100 mls @ 20 mls/hr IV Q5H [facility] Stop: 05/21/18 06:59 Last Admin: 04/22/18 09:35 Dose: 20 mls/hr Infusion: 04/22/18 09:35 Dose: 20 mls/hr Admin: 04/22/18 04:25 Dose: 20 mls/hr Infusion: 04/22/18 03:58 Dose: 0 mls/hr Admin: 04/21/18 22:58 Dose: 20 mls/hr Infusion: 04/21/18 22:58 Dose: 0 mls/hr Admin: 04/21/18 18:00 Dose: 20 mls/hr Infusion: 04/21/18 17:42 Dose: 0 mls/hr Admin: 04/21/18 12:42 Dose: 20 mls/hr Infusion: 04/21/18 12:42 Dose: 20 mls/hr Admin: 04/21/18 07:50 Dose: 20 mls/hr Pantoprazole Sodium 80 mg/ (Dextrose) 120 mls @ 400 mls/hr IV NOW ONE Stop: 04/21/18 07:14 Last Infusion: 04/21/18 07:51 Dose: 0 mls/hr Admin: 04/21/18 07:33 Dose: 400 mls/hr Sodium Chloride (Nss) 500 mls @ 999 mls/hr IV .Q31M [facility] Stop: 04/21/18 07:30 Last Infusion: 04/21/18 08:22 Dose: 0 mls/hr Admin: 04/21/18 07:51 Dose: 999 mls/hr Octreotide Acetate 500 mcg/ (Sodium Chloride) 105 mls @ 10.5 mls/hr IV .Q10H [facility] Stop: 05/21/18 08:29 Last Admin: 04/22/18 05:00 Dose: 50 mcg/hr, 10.5 mls/hr Infusion: 04/22/18 04:31 Dose: 0 mcg/hr, 0 mls/hr Admin: 04/21/18 18:31 Dose: 50 mcg/hr, 10.5 mls/hr Infusion: 04/21/18 18:31 Dose: 50 mcg/hr, 10.5 mls/hr Admin: 04/21/18 12:37 Dose: 50 mcg/hr, 10.5 mls/hr Octreotide Acetate 100 mcg/ (Syringe) 10 mls @ 3 mls/min IV NOW STA Stop: 04/21/18 08:27 Last Admin: 04/21/18 12:34 Dose: 3 mls/min Lidocaine HCl (Xylocaine 2%) Confirm Administered Dose 2 ml INFIL .STK-MED ONE Stop: 04/22/18 12:55 Last Admin: 04/22/18 13:53 Dose: Not Given Miscellaneous (Home Med Administration) 1 ea N/A NOW ONE Stop: 04/21/18 14:57 Last Admin: 04/21/18 16:08 Dose: Not Given Propofol (Diprivan) Confirm Administered Dose 200 mg IV .STK-MED ONE Stop: 04/22/18 12:55 Last Admin: 04/22/18 13:53 Dose: Not Given Medical Decision Making Differential Diagnosis Etiologies such as metabolic, infection, hyp/hyperglycemia, electrolyte abnormalities, cardiac sources, intracerebral event, toxicologic, neurologic, as well as others were entertained. Medical Records Attestation: I reviewed the patient's medical records. Home Medications Current Medication List: was personally reviewed by me Laboratory Data Attestation: I reviewed the patient's lab results. Result diagrams: 04/22/18 04:19 04/22/18 04:19 Lab Results 04/21/18 04/21/18 04/21/18 Range/Units 06:42 06:42 06:42 WBC 10.37 (4.8-10.8) K/uL RBC 1.76 L (4.2-5.4) M/uL Hgb 4.3 L* (12.0-16.0) g/dL POC Hgb (12.0-16.0) g/dl Hct 14.4 L* (37-47) % POC Hct (37-47) % MCV 81.8 (80-100) fL MCH 24.4 L (25-34) pg MCHC 29.9 L (32-36) g/dL RDW Std Deviation 64.1 H (36.4-46.3) fL RDW Coeff of [place] 21.4 H (11.5-14.5) % Plt Count 236 (130-400) K/uL MPV 10.4 (7.4-10.4) fL Immature Gran % (Auto) 0.2 % Neut % (Auto) 64.1 % Lymph % (Auto) 17.0 % [place] % (Auto) 10.1 % Eos % (Auto) 8.1 % Baso % (Auto) 0.5 % Immature Gran # (Auto) 0.02 (0.00-0.02) K/uL Neut # (Auto) 6.65 H (1.4-6.5) K/uL Lymph # (Auto) 1.76 (1.2-3.4) K/uL [place] # (Auto) 1.05 H (0.11-0.59) K/uL Eos # (Auto) 0.84 H (0-0.5) K/uL Baso # (Auto) 0.05 (0-0.2) K/uL Absolute Nucleated RBC 0.09 H (0-0) K/uL Nucleated RBC % (auto) 0.8 % Polychromasia 1+ Hypochromasia Present Anisocytosis Present Target Cells 1+ Schistocytes 1+ PT 13.2 H (9.0-12.0) Seconds INR 1.3 H (0.9-1.1) APTT 21.3 (21.0-31.0) Seconds PTT Ratio 0.8 POC Sodium (135-144) mEq/L Sodium 135 L (136-145) mmol/L POC Potassium (3.3-5.0) mEq/L Potassium 4.6 (3.5-5.1) mmol/L POC Chloride (101-112) mEq/L Chloride 106 (98-107) mmol/L Carbon Dioxide 18 L (21-32) mmol/L POC Total CO2 (24-31) mEq/l Anion Gap 12.0 H (3-11) POC Anion Gap (16-25) mmol/L POC BUN (7-18) mg/dl BUN 34 H (7-18) mg/dl Creatinine 1.34 H (0.6-1.2) mg/dl POC Creatinine (0.6-1.3) mg/dl Est Cr Clr Drug Dosing 37.9 ml/min Est GFR ( Amer) 49.1 Est GFR (Non-Af Amer) 42.4 BUN/Creatinine Ratio 25.1 H (10-20) Glucose 110 H (70-99) mg/dl POC Glucose (other) (70-99) mg/dl Calcium 8.0 L (8.5-10.1) mg/dl POC Ioniz Calcium Zechariah (1.12-1.32) mmol/l Magnesium (1.8-2.4) mg/dl Total Bilirubin 1.4 H (0.2-1) mg/dl AST 40 H (15-37) U/L ALT 22 (12-78) U/L Alkaline Phosphatase 163 H (45-117) U/L Ammonia (11-32) umol/L Total Protein 6.1 L (6.4-8.2) gm/dl Albumin 2.1 L (3.4-5.0) gm/dl Globulin 4.0 (2.5-4.0) gm/dl Albumin/Globulin Ratio 0.5 L (0.9-2) Nasal Screen MRSA (PCR) (Negative) POC Stool Occult Blood (Negative) Urine Opiates Screen (Neg) Ur Methadone, Qual (Neg) Urine Barbiturates (Neg) Ur Phencyclidine (PCP) (Neg) U Amphetamin/Meth Scrn (Neg) MDMA (Ecstasy) Screen (Neg) U Benzodiazepines Scrn (Neg) Ur Cocaine Metabolite (Neg) U Marijuana (THC) Screen (Neg) Ethyl Alcohol mg/dL (0-3) mg/dl Blood Type Antibody Screen Crossmatch 04/21/18 04/21/18 04/21/18 Range/Units 06:42 06:42 06:50 WBC (4.8-10.8) K/uL RBC (4.2-5.4) M/uL Hgb (12.0-16.0) g/dL POC Hgb 5.1 L* (12.0-16.0) g/dl Hct (37-47) % POC Hct 15 L* (37-47) % MCV (80-100) fL MCH (25-34) pg MCHC (32-36) g/dL RDW Std Deviation (36.4-46.3) fL RDW Coeff of Ladarius (11.5-14.5) % Plt Count (130-400) K/uL MPV (7.4-10.4) fL Immature Gran % (Auto) % Neut % (Auto) % Lymph % (Auto) % [place] % (Auto) % Eos % (Auto) % Baso % (Auto) % Immature Gran # (Auto) (0.00-0.02) K/uL Neut # (Auto) (1.4-6.5) K/uL Lymph # (Auto) (1.2-3.4) K/uL [place] # (Auto) (0.11-0.59) K/uL Eos # (Auto) (0-0.5) K/uL Baso # (Auto) (0-0.2) K/uL Absolute Nucleated RBC (0-0) K/uL Nucleated RBC % (auto) % Polychromasia Hypochromasia Anisocytosis Target Cells Schistocytes PT (9.0-12.0) Seconds INR (0.9-1.1) APTT (21.0-31.0) Seconds PTT Ratio POC Sodium 136 (135-144) mEq/L Sodium (136-145) mmol/L POC Potassium 4.6 (3.3-5.0) mEq/L Potassium (3.5-5.1) mmol/L POC Chloride 104 (101-112) mEq/L Chloride (98-107) mmol/L Carbon Dioxide (21-32) mmol/L POC Total CO2 17 L (24-31) mEq/l Anion Gap (3-11) POC Anion Gap 21.0 (16-25) mmol/L POC BUN 29 H (7-18) mg/dl BUN (7-18) mg/dl Creatinine (0.6-1.2) mg/dl POC Creatinine 1.3 (0.6-1.3) mg/dl Est Cr Clr Drug Dosing ml/min Est GFR ( Amer) Est GFR (Non-Af Amer) BUN/Creatinine Ratio (10-20) Glucose (70-99) mg/dl POC Glucose (other) 109 H (70-99) mg/dl Calcium (8.5-10.1) mg/dl POC Ioniz Calcium Zechariah 1.07 L (1.12-1.32) mmol/l Magnesium 1.8 (1.8-2.4) mg/dl Total Bilirubin (0.2-1) mg/dl AST (15-37) U/L ALT (12-78) U/L Alkaline Phosphatase (45-117) U/L Ammonia (11-32) umol/L Total Protein (6.4-8.2) gm/dl Albumin (3.4-5.0) gm/dl Globulin (2.5-4.0) gm/dl Albumin/Globulin Ratio (0.9-2) Nasal Screen MRSA (PCR) (Negative) POC Stool Occult Blood (Negative) Urine Opiates Screen (Neg) Ur Methadone, Qual (Neg) Urine Barbiturates (Neg) Ur Phencyclidine (PCP) (Neg) U Amphetamin/Meth Scrn (Neg) MDMA (Ecstasy) Screen (Neg) U Benzodiazepines Scrn (Neg) Ur Cocaine Metabolite (Neg) U Marijuana (THC) Screen (Neg) Ethyl Alcohol mg/dL (0-3) mg/dl Blood Type B Positive Antibody Screen NEGATIVE Crossmatch See Detail 04/21/18 04/21/18 04/21/18 Range/Units 06:54 10:15 12:14 WBC (4.8-10.8) K/uL RBC (4.2-5.4) M/uL Hgb (12.0-16.0) g/dL POC Hgb (12.0-16.0) g/dl Hct (37-47) % POC Hct (37-47) % MCV (80-100) fL MCH (25-34) pg MCHC (32-36) g/dL RDW Std Deviation (36.4-46.3) fL RDW Coeff of Ladarius (11.5-14.5) % Plt Count (130-400) K/uL MPV (7.4-10.4) fL Immature Gran % (Auto) % Neut % (Auto) % Lymph % (Auto) % [place] % (Auto) % Eos % (Auto) % Baso % (Auto) % Immature Gran # (Auto) (0.00-0.02) K/uL Neut # (Auto) (1.4-6.5) K/uL Lymph # (Auto) (1.2-3.4) K/uL [place] # (Auto) (0.11-0.59) K/uL Eos # (Auto) (0-0.5) K/uL Baso # (Auto) (0-0.2) K/uL Absolute Nucleated RBC (0-0) K/uL Nucleated RBC % (auto) % Polychromasia Hypochromasia Anisocytosis Target Cells Schistocytes PT (9.0-12.0) Seconds INR (0.9-1.1) APTT (21.0-31.0) Seconds PTT Ratio POC Sodium (135-144) mEq/L Sodium (136-145) mmol/L POC Potassium (3.3-5.0) mEq/L Potassium (3.5-5.1) mmol/L POC Chloride (101-112) mEq/L Chloride (98-107) mmol/L Carbon Dioxide (21-32) mmol/L POC Total CO2 (24-31) mEq/l Anion Gap (3-11) POC Anion Gap (16-25) mmol/L POC BUN (7-18) mg/dl BUN (7-18) mg/dl Creatinine (0.6-1.2) mg/dl POC Creatinine (0.6-1.3) mg/dl Est Cr Clr Drug Dosing ml/min Est GFR ( Amer) Est GFR (Non-Af Amer) BUN/Creatinine Ratio (10-20) Glucose (70-99) mg/dl POC Glucose (other) (70-99) mg/dl Calcium (8.5-10.1) mg/dl POC Ioniz Calcium Zechariah (1.12-1.32) mmol/l Magnesium (1.8-2.4) mg/dl Total Bilirubin (0.2-1) mg/dl AST (15-37) U/L ALT (12-78) U/L Alkaline Phosphatase (45-117) U/L Ammonia 60.5 H (11-32) umol/L Total Protein (6.4-8.2) gm/dl Albumin (3.4-5.0) gm/dl Globulin (2.5-4.0) gm/dl Albumin/Globulin Ratio (0.9-2) Nasal Screen MRSA (PCR) Positive A (Negative) POC Stool Occult Blood Positive H (Negative) Urine Opiates Screen (Neg) Ur Methadone, Qual (Neg) Urine Barbiturates (Neg) Ur Phencyclidine (PCP) (Neg) U Amphetamin/Meth Scrn (Neg) MDMA (Ecstasy) Screen (Neg) U Benzodiazepines Scrn (Neg) Ur Cocaine Metabolite (Neg) U Marijuana (THC) Screen (Neg) Ethyl Alcohol mg/dL (0-3) mg/dl Blood Type Antibody Screen Crossmatch 04/21/18 04/21/18 04/21/18 Range/Units 12:14 12:14 15:15 WBC (4.8-10.8) K/uL RBC (4.2-5.4) M/uL Hgb 6.5 L* (12.0-16.0) g/dL POC Hgb (12.0-16.0) g/dl Hct 20.4 L* (37-47) % POC Hct (37-47) % MCV (80-100) fL MCH (25-34) pg MCHC (32-36) g/dL RDW Std Deviation (36.4-46.3) fL RDW Coeff of Ladarius (11.5-14.5) % Plt Count (130-400) K/uL MPV (7.4-10.4) fL Immature Gran % (Auto) % Neut % (Auto) % Lymph % (Auto) % [place] % (Auto) % Eos % (Auto) % Baso % (Auto) % Immature Gran # (Auto) (0.00-0.02) K/uL Neut # (Auto) (1.4-6.5) K/uL Lymph # (Auto) (1.2-3.4) K/uL [place] # (Auto) (0.11-0.59) K/uL Eos # (Auto) (0-0.5) K/uL Baso # (Auto) (0-0.2) K/uL Absolute Nucleated RBC (0-0) K/uL Nucleated RBC % (auto) % Polychromasia Hypochromasia Anisocytosis Target Cells Schistocytes PT (9.0-12.0) Seconds INR (0.9-1.1) APTT (21.0-31.0) Seconds PTT Ratio POC Sodium (135-144) mEq/L Sodium (136-145) mmol/L POC Potassium (3.3-5.0) mEq/L Potassium (3.5-5.1) mmol/L POC Chloride (101-112) mEq/L Chloride (98-107) mmol/L Carbon Dioxide (21-32) mmol/L POC Total CO2 (24-31) mEq/l Anion Gap (3-11) POC Anion Gap (16-25) mmol/L POC BUN (7-18) mg/dl BUN (7-18) mg/dl Creatinine (0.6-1.2) mg/dl POC Creatinine (0.6-1.3) mg/dl Est Cr Clr Drug Dosing ml/min Est GFR ( Amer) Est GFR (Non-Af Amer) BUN/Creatinine Ratio (10-20) Glucose (70-99) mg/dl POC Glucose (other) (70-99) mg/dl Calcium (8.5-10.1) mg/dl POC Ioniz Calcium Zechariah (1.12-1.32) mmol/l Magnesium (1.8-2.4) mg/dl Total Bilirubin (0.2-1) mg/dl AST (15-37) U/L ALT (12-78) U/L Alkaline Phosphatase (45-117) U/L Ammonia (11-32) umol/L Total Protein (6.4-8.2) gm/dl Albumin (3.4-5.0) gm/dl Globulin (2.5-4.0) gm/dl Albumin/Globulin Ratio (0.9-2) Nasal Screen MRSA (PCR) (Negative) POC Stool Occult Blood (Negative) Urine Opiates Screen Pos H (Neg) Ur Methadone, Qual Neg (Neg) Urine Barbiturates Neg (Neg) Ur Phencyclidine (PCP) Neg (Neg) U Amphetamin/Meth Scrn Neg (Neg) MDMA (Ecstasy) Screen Neg (Neg) U Benzodiazepines Scrn Neg (Neg) Ur Cocaine Metabolite Neg (Neg) U Marijuana (THC) Screen Neg (Neg) Ethyl Alcohol mg/dL < 3.0 (0-3) mg/dl Blood Type Antibody Screen Crossmatch 04/21/18 04/21/18 04/22/18 Range/Units 16:07 21:58 04:19 WBC 9.64 (4.8-10.8) K/uL RBC 3.36 L (4.2-5.4) M/uL Hgb 7.7 L 9.2 L 9.5 L (12.0-16.0) g/dL POC Hgb (12.0-16.0) g/dl Hct 23.4 L 27.9 L 28.4 L (37-47) % POC Hct (37-47) % MCV 84.5 (80-100) fL MCH 28.3 (25-34) pg MCHC 33.5 (32-36) g/dL RDW Std Deviation 50.0 H (36.4-46.3) fL RDW Coeff of Ladarius 16.6 H (11.5-14.5) % Plt Count 168 (130-400) K/uL MPV 10.7 H (7.4-10.4) fL Immature Gran % (Auto) % Neut % (Auto) % Lymph % (Auto) % [place] % (Auto) % Eos % (Auto) % Baso % (Auto) % Immature Gran # (Auto) (0.00-0.02) K/uL Neut # (Auto) (1.4-6.5) K/uL Lymph # (Auto) (1.2-3.4) K/uL [place] # (Auto) (0.11-0.59) K/uL Eos # (Auto) (0-0.5) K/uL Baso # (Auto) (0-0.2) K/uL Absolute Nucleated RBC 0.10 H (0-0) K/uL Nucleated RBC % (auto) 1.1 % Polychromasia Hypochromasia Anisocytosis Target Cells Schistocytes PT (9.0-12.0) Seconds INR (0.9-1.1) APTT (21.0-31.0) Seconds PTT Ratio POC Sodium (135-144) mEq/L Sodium (136-145) mmol/L POC Potassium (3.3-5.0) mEq/L Potassium (3.5-5.1) mmol/L POC Chloride (101-112) mEq/L Chloride (98-107) mmol/L Carbon Dioxide (21-32) mmol/L POC Total CO2 (24-31) mEq/l Anion Gap (3-11) POC Anion Gap (16-25) mmol/L POC BUN (7-18) mg/dl BUN (7-18) mg/dl Creatinine (0.6-1.2) mg/dl POC Creatinine (0.6-1.3) mg/dl Est Cr Clr Drug Dosing ml/min Est GFR ( Amer) Est GFR (Non-Af Amer) BUN/Creatinine Ratio (10-20) Glucose (70-99) mg/dl POC Glucose (other) (70-99) mg/dl Calcium (8.5-10.1) mg/dl POC Ioniz Calcium Zechariah (1.12-1.32) mmol/l Magnesium (1.8-2.4) mg/dl Total Bilirubin (0.2-1) mg/dl AST (15-37) U/L ALT (12-78) U/L Alkaline Phosphatase (45-117) U/L Ammonia (11-32) umol/L Total Protein (6.4-8.2) gm/dl Albumin (3.4-5.0) gm/dl Globulin (2.5-4.0) gm/dl Albumin/Globulin Ratio (0.9-2) Nasal Screen MRSA (PCR) (Negative) POC Stool Occult Blood (Negative) Urine Opiates Screen (Neg) Ur Methadone, Qual (Neg) Urine Barbiturates (Neg) Ur Phencyclidine (PCP) (Neg) U Amphetamin/Meth Scrn (Neg) MDMA (Ecstasy) Screen (Neg) U Benzodiazepines Scrn (Neg) Ur Cocaine Metabolite (Neg) U Marijuana (THC) Screen (Neg) Ethyl Alcohol mg/dL (0-3) mg/dl Blood Type Antibody Screen Crossmatch 04/22/18 Range/Units 04:19 WBC (4.8-10.8) K/uL RBC (4.2-5.4) M/uL Hgb (12.0-16.0) g/dL POC Hgb (12.0-16.0) g/dl Hct (37-47) % POC Hct (37-47) % MCV (80-100) fL MCH (25-34) pg MCHC (32-36) g/dL RDW Std Deviation (36.4-46.3) fL RDW Coeff of Ladarius (11.5-14.5) % Plt Count (130-400) K/uL MPV (7.4-10.4) fL Immature Gran % (Auto) % Neut % (Auto) % Lymph % (Auto) % [place] % (Auto) % Eos % (Auto) % Baso % (Auto) % Immature Gran # (Auto) (0.00-0.02) K/uL Neut # (Auto) (1.4-6.5) K/uL Lymph # (Auto) (1.2-3.4) K/uL [place] # (Auto) (0.11-0.59) K/uL Eos # (Auto) (0-0.5) K/uL Baso # (Auto) (0-0.2) K/uL Absolute Nucleated RBC (0-0) K/uL Nucleated RBC % (auto) % Polychromasia Hypochromasia Anisocytosis Target Cells Schistocytes PT (9.0-12.0) Seconds INR (0.9-1.1) APTT (21.0-31.0) Seconds PTT Ratio POC Sodium (135-144) mEq/L Sodium 138 (136-145) mmol/L POC Potassium (3.3-5.0) mEq/L Potassium 4.4 (3.5-5.1) mmol/L POC Chloride (101-112) mEq/L Chloride 111 H (98-107) mmol/L Carbon Dioxide 23 (21-32) mmol/L POC Total CO2 (24-31) mEq/l Anion Gap 4.0 (3-11) POC Anion Gap (16-25) mmol/L POC BUN (7-18) mg/dl BUN 25 H (7-18) mg/dl Creatinine 0.98 D (0.6-1.2) mg/dl POC Creatinine (0.6-1.3) mg/dl Est Cr Clr Drug Dosing 51.6 ml/min Est GFR ( Amer) 71.7 Est GFR (Non-Af Amer) 61.8 BUN/Creatinine Ratio 25.2 H (10-20) Glucose 104 H (70-99) mg/dl POC Glucose (other) (70-99) mg/dl Calcium 7.7 L (8.5-10.1) mg/dl POC Ioniz Calcium Zechariah (1.12-1.32) mmol/l Magnesium (1.8-2.4) mg/dl Total Bilirubin 4.4 H D (0.2-1) mg/dl AST 39 H (15-37) U/L ALT 18 (12-78) U/L Alkaline Phosphatase 116 (45-117) U/L Ammonia (11-32) umol/L Total Protein 5.1 L (6.4-8.2) gm/dl Albumin 1.8 L (3.4-5.0) gm/dl Globulin 3.3 (2.5-4.0) gm/dl Albumin/Globulin Ratio 0.5 L (0.9-2) Nasal Screen MRSA (PCR) (Negative) POC Stool Occult Blood (Negative) Urine Opiates Screen (Neg) Ur Methadone, Qual (Neg) Urine Barbiturates (Neg) Ur Phencyclidine (PCP) (Neg) U Amphetamin/Meth Scrn (Neg) MDMA (Ecstasy) Screen (Neg) U Benzodiazepines Scrn (Neg) Ur Cocaine Metabolite (Neg) U Marijuana (THC) Screen (Neg) Ethyl Alcohol mg/dL (0-3) mg/dl Blood Type Antibody Screen Crossmatch Imaging Data Radiologist's Impression: Radiology results as stated below per my review and the radiologist's interpretation: XR chest 1V portable CLINICAL HISTORY: GI bleed dyspnea COMPARISON STUDY: 04/03/2018 FINDINGS: The bones soft tissues and hemidiaphragms are normal. The cardiomediastinal silhouette is normal. The lungs are clear. The pulmonary vasculature is normal. IMPRESSION: Negative chest. The above report was generated using voice recognition software. It may contain grammatical, syntax or spelling errors. Electronically signed by: Camden Banuelos M.D. 04/21/2018 7:22 AM ECG Data Attestation: I personally reviewed and interpreted this ECG as follows: Indication: weakness Rate (beats per minute): 107 Rhythm: sinus tachycardia Findings: no ST depression and no ST elevation Blood Pressure Blood Pressure Findings: Low blood pressure Blood Pressure Disposition: further management by hospitalist MDM Narrative This is a 62-year-old female who presents emergency department hypotensive and extremely weak. I am concerned that the patient has GI bleed and she is heme positive on rectal examination. The patient was typed and screened for 4 units packed red blood cells. She was discussed with the drug and alcohol counselor as well as the hospitalist service. Patient was started on both Protonix bolus and drip. Patient was in agreement with the treatment plan. Impression & Plan GI bleed, Anemia Critical Care Time I have personally spent greater than 30 minutes of critical care time in the direct management of this patient. This includes bedside care, interpretation of diagnostic studies, and testing, discussion with consultants, patient, and family members, and other required patient management activities. This 30 minutes is in excess of all separately billable procedures. Critical Care Time: Yes Total Critical Care Time: 30 Discharge Plan Visit Data *Final* Discharge Date/Time: 04/21/18 09:22 Chief Complaint: Weakness Stated Complaint: WEAKNESS ED Provider: Jimmy Chicas Discharge Problem: GI bleed, Anemia Patient Disposition: Admitted As Inpatient Discharge Instructions Interventions: ED Discharge Assessment Last Done: 04/21/18 09:22 The scribe's documentation has been prepared under my direction and personally reviewed by me in its entirety. I confirm that the note above accurately reflects all work, treatment, procedures, and medical decision making performed by me.
--- NOTE | 2018-04-22 15:49 | Hospitalist Progress Note ---
Date of Service April 22, 2018 Assessment & Plan (1) Acute blood loss anemia: (2) GI bleed: Persistent GI bleeding in the setting of cirrhosis and HHT in addition to alcohol use. Repeat bleed after recent admission. Endoscopy revealed extensive angiectasia is in the cardia and the gastric antrum. There were several areas with fresh adherent clot. Coagulation for hemostasis using argon plasma was successful. Multiple angioid ectasias without bleeding were found in the entire duodenum. She was returned to the ICU for ongoing care on PPI therapy.Trend CBC in a.m. (3) RANDY (acute kidney injury): RANDY likely secondary to hypovolemia resolved after fluid resuscitation and blood transfusion. Furosemide and spironolactone are held. (4) Alcoholic cirrhosis of liver: (5) Alcohol abuse: -Patient with history of heavy alcohol use in the past, recent admission for alcohol withdrawal/hepatic encephalopathy/decompensated cirrhosis -Patient reports "a couple sips of alcohol" over the past couple weeks -Alcohol withdrawal "at risk" protocol, however, no withdrwal symptoms so far (6) Clostridium difficile infection: finish vanco course, no active diarrhea, contact precautions. (7) DVT prophylaxis: -SCDs due to GI bleed Full code Disposition-patient expressed to me that she was "tired of all this." When asked her to elaborate it was not clear if she was done with treatment or is simply wanting to go seek medical attention at a different hospital. This conversation was prompted by my recommendation to consider an indwelling port in the event of future frequent hospital admissions which would potentially cause more central line placement and multiple peripheral IVs. She was concerned and at this point did not want to consider a port. Will consult palliative to assist with treatment options and delve into this a little further. Brandi Capps DO [facility] Hospitalist Subjective 62-year-old female with alcoholic cirrhosis and HHT, admitted for acute blood loss anemia secondary to GI bleeding. She underwent endoscopy today, see assessment plan for discussion. She reports pain from her central line and is asking to have it removed. We discussed that that is up to the ICU team. We discussed port placement. She declined and further mentioned that she was " done with all of this. See below for further discussion. Denies any pain or other symptoms at this time. Tolerating p.o. post endoscopy. Physical Exam 2 Vital Signs (Past 24 Hours): Last Vital Signs Temp 36.3 C L 04/22/18 11:29 Pulse 91 H 04/22/18 14:13 Resp 22 04/22/18 14:13 BP 137/86 04/22/18 14:13 Pulse Ox 96 04/22/18 14:13 WD/WN, vitals as above Eyes: PERRL, conjunctivae normal, anicteric sclerae ENMT: external ear and nose normal, oropharynx normal, R IJ in place Respiratory: normal respiratory effort, lungs clear to auscultation Cardiovascular: Rate/Rhythm: regular rhythm and + tachycardic Vessels: normal peripheral pulses Extremities: + trace edema Gastrointestinal (Abdomen): normal bowel sounds, soft, nontender, nondistended Musculoskeletal: no cyanosis or clubbing, extremities motor strength 5/5 Skin: multiple telangiectasias, warm and dry Neurologic: No face palsy, no dysarthria Psychiatric: A+Ox3, euthymic affect Results & Data Laboratory Results Short CBC 04/21/18 04/22/18 Range/Units 21:58 04:19 WBC 9.64 (4.8-10.8) K/uL Hgb 9.2 L 9.5 L (12.0-16.0) g/dL Hct 27.9 L 28.4 L (37-47) % Plt Count 168 (130-400) K/uL BMP 04/22/18 04:19 Sodium 138 Potassium 4.4 Chloride 111 H Carbon Dioxide 23 BUN 25 H Creatinine 0.98 D Glucose 104 H Calcium 7.7 L Liver Function 04/22/18 Range/Units 04:19 Total Bilirubin 4.4 H D (0.2-1) mg/dl AST 39 H (15-37) U/L ALT 18 (12-78) U/L Alkaline Phosphatase 116 (45-117) U/L Albumin 1.8 L (3.4-5.0) gm/dl Medications Administered Current Inpatient Medications Acetaminophen/Codeine Phosphate (Tylenol W/Codeine #3) 1 tab PO Q6H PRN PRN Reason: Pain Stop: 05/21/18 11:39 Last Admin: 04/22/18 00:51 Dose: 1 tab Folic Acid (Folvite) 1 mg PO DAILY PHILIPP Stop: 05/21/18 10:44 Last Admin: 04/22/18 07:48 Dose: 1 mg Heparin Sodium (Beef Lung) (Heparin Sod 10 Unit/Ml Flush) 5 ml FLUSH PRN PRN PRN Reason: Flush Stop: 05/22/18 00:49 Lorazepam (Ativan) 1 mg in 2 mls @ 2 mls/min IV ONE PRN; Protocol PRN Reason: EtoH Withdrawal AWSS 6-10 Stop: 05/21/18 10:01 Sodium Chloride (Nss 1000ml) 1,000 mls @ 80 mls/hr IV .[id number] PHILIPP Stop: 05/21/18 10:38 Last Admin: 04/22/18 13:50 Dose: 80 mls/hr Sodium Chloride (Nss 250ml) 250 mls @ 15 mls/hr IV .[id number] PRN PRN Reason: For Transfusion Stop: 05/21/18 17:33 Magnesium Oxide (Mag-Ox) 400 mg PO DAILY PHILIPP Stop: 05/22/18 08:59 Last Admin: 04/22/18 07:48 Dose: 400 mg Miscellaneous (Order Awaiting Action) 1 ea N/A QS PHILIPP Stop: 05/21/18 15:59 Last Admin: 04/22/18 18:22 Dose: Not Given Miscellaneous (Icu Protocol For Hyperglycemia) 1 ea N/A PRN PRN; Protocol PRN Reason: Hyperglycemia Protocol Stop: 04/23/18 10:01 Multivitamins (Multivitamin Tab) 1 tab PO QAM PHILIPP Stop: 05/22/18 08:59 Last Admin: 04/22/18 13:52 Dose: Not Given Pantoprazole Sodium (Protonix) 40 mg PO BID [facility] Stop: 05/22/18 20:59 Raspberry (Raspberry) 5 ml PO Q6 PHILIPP Stop: 05/05/18 17:59 Last Admin: 04/22/18 18:26 Dose: 5 ml Rifaximin (Xifaxan) 550 mg PO BID [facility]IP[facility] Stop: 05/21/18 20:59 Last Admin: 04/22/18 07:48 Dose: 550 mg Thiamine HCl (Vitamin B-1) 100 mg PO QAM [facility] Stop: 05/21/18 10:44 Last Admin: 04/22/18 07:48 Dose: 100 mg Vancomycin HCl (Vancomycin Hcl) 125 mg PO Q6 PHILIPP Stop: 05/01/18 17:59 Last Admin: 04/22/18 18:26 Dose: 125 mg
[2018-04-22] MEDS: PANTOprazole 40 MG TAB PO SCH (21:10)
[2018-04-23] MEDS: SODIUM CHLORIDE 0.9% 1000ML 1,000 ML IV SCH ×2 (02:04→14:05)
[2018-04-23] MEDS: RASPBERRY SYRUP 5 ML UDP PO SCH ×3 (05:39→18:15)
[2018-04-23] MEDS: VANCOMYCIN HCL 125 MG/2.5ML SOLN PO SCH ×3 (05:39→18:15)
[2018-04-23 05:47] LABS: Hematocrit (blood only) 27.5 % (37-47); Hemoglobin 8.9 g/dL (12.0-16.0); Mean Corpuscular Hgb Conc 32.4 g/dL (32-36); Mean Platelet Volume 10.5 fL (7.4-10.4); Nucleated RBC % (auto) 0.8 %; Platelet Count 170 K/uL (130-400); RDW Coefficient of Variation 17.8 % (11.5-14.5); RDW Standard Deviation 55.2 fL (36.4-46.3); Red Blood Count 3.16 M/uL (4.2-5.4)
[2018-04-23] MEDS: RIFAXIMIN 550 MG TABLET PO SCH ×2 (08:21→21:37)
[2018-04-23] MEDS: FOLIC ACID 1 MG TAB PO SCH (08:22)
[2018-04-23] MEDS: THIAMINE HCL 100 MG TAB PO SCH (08:22)
[2018-04-23] MEDS: MAGNESIUM OXIDE 400 MG TAB PO SCH (08:22)
[2018-04-23] MEDS: PANTOprazole 40 MG TAB PO SCH ×2 (08:22→21:37)
[2018-04-23] MEDS: MULTIVITAMIN TAB PO SCH (08:24)
--- NOTE | 2018-04-23 11:11 | Anesthesiology Progress Note ---
Date of Service April 23, 2018 Anesthesia Post Procedure Vital Signs Vital Signs: Temp Pulse Pulse Pulse Resp BP BP 04/23/18 07:00 37.1 C 87 20 130/81 04/23/18 00:07 37.1 C 86 20 112/74 04/22/18 22:00 92 H 20 112/69 04/22/18 21:00 95 H 18 118/64 04/22/18 20:00 36.8 C 98 H 21 118/76 04/22/18 19:27 94 H 04/22/18 19:25 97 H 19 136/79 04/22/18 17:00 101 H 25 H 04/22/18 16:01 91 H 20 04/22/18 16:00 36.8 C 95 H 27 H 132/83 04/22/18 15:01 102 H 19 04/22/18 15:00 98 H 18 137/87 04/22/18 14:14 90 18 04/22/18 14:13 91 H 22 137/86 04/22/18 14:01 99 H 22 04/22/18 13:49 101 H 19 124/78 04/22/18 13:48 93 H 24 04/22/18 13:32 92 H 20 124/83 04/22/18 13:15 92 H 20 128/80 04/22/18 13:03 94 H 20 105/73 04/22/18 11:29 36.3 C L 96 H 20 136/99 Pulse Ox 04/23/18 07:00 97 04/23/18 00:07 97 04/22/18 22:00 97 04/22/18 21:00 95 04/22/18 20:00 97 04/22/18 19:27 04/22/18 19:25 99 04/22/18 17:00 97 04/22/18 16:01 96 04/22/18 16:00 96 04/22/18 15:01 96 04/22/18 15:00 96 04/22/18 14:14 96 04/22/18 14:13 96 04/22/18 14:01 96 04/22/18 13:49 97 04/22/18 13:48 96 04/22/18 13:32 96 04/22/18 13:15 96 04/22/18 13:03 95 01/08/19 11:29 94 Pain Intensity Bilateral Lower Leg: Pain Intensity: 4 Notes Mental Status: alert / awake / arousable and participated in evaluation Patient Amnestic to Procedure: Yes Nausea / Vomiting: adequately controlled Pain: adequately controlled Airway Patency, RR, SpO2: stable & adequate BP & HR: stable & adequate Hydration State: stable & adequate Anesthetic Complications: no major complications apparent and Pt Satisfied with anesthetic care
--- NOTE | 2018-04-23 13:03 | Hospitalist Progress Note ---
Date of Service April 23, 2018 Assessment & Plan (1) Acute blood loss anemia: Hemoglobin down from yesterday (2) GI bleed: Persistent GI bleeding in the setting of cirrhosis and HHT in addition to alcohol use. Repeat bleed after recent admission. Endoscopy revealed extensive angiectasia is in the cardia and the gastric antrum. There were several areas with fresh adherent clot. Coagulation for hemostasis using argon plasma was successful. Multiple angioid ectasias without bleeding were found in the entire duodenum. She was returned to the ICU for ongoing care on PPI therapy.she was out of the ICU when I saw her today. (3) RANDY (acute kidney injury): RANDY likely secondary to hypovolemia resolved after fluid resuscitation and blood transfusion. Furosemide and spironolactone are held. Creatinine down to normal now (4) Alcoholic cirrhosis of liver: Monitor daily labs (5) Alcohol abuse: -Patient with history of heavy alcohol use in the past, recent admission for alcohol withdrawal/hepatic encephalopathy/decompensated cirrhosis -Patient reports "a couple sips of alcohol" over the past couple weeks -Alcohol withdrawal "at risk" protocol, however, no withdrwal symptoms so far (6) Clostridium difficile infection: finish Vanco course, no active diarrhea, contact precautions. (7) DVT prophylaxis: -SCDs due to GI bleed Full code Disposition-patient expressed to Dr. Capps that she was "tired of all this." When asked her to elaborate it was not clear if she was done with treatment or is simply wanting to go seek medical attention at a different hospital. This conversation was prompted by Dr. Capps's recommendation to consider an indwelling port in the event of future frequent hospital admissions which would potentially cause more central line placement and multiple peripheral IVs. She was concerned and at this point did not want to consider a port. Will consult palliative to assist with treatment options and delve into this a little further. Subjective 62-year-old female with alcoholic cirrhosis and HHT, admitted for acute blood loss anemia secondary to GI bleeding. She underwent endoscopy 04/22. Extension of angiectasia's were found. Port placement discussed yesterday. Per Dr. Capps the patient declined and further mentioned that she was "done with all of this." See below for further discussion. Denies any pain or other symptoms at this time. Tolerating p.o. post endoscopy. Physical Exam 2 Vital Signs (Past 24 Hours): Last Vital Signs Temp 37.1 C 04/23/18 07:00 Pulse 87 04/23/18 07:00 Resp 20 04/23/18 07:00 BP 130/81 04/23/18 07:00 Pulse Ox 97 04/23/18 08:00 ROS-No Headache, No Visual Changes, No Fever, No Chills, No Neck Pain or Stiffness, No Chest Pain, No Palpitations, No SOB, No ROBISON, No Cough, No Sputum, No Wheezing, No Abdominal Pain, No Diarrhea, No Hematemesis, No Hemoptysis, No Unexpected Weight Loss, No Flank pain, No Melena, No Hematochezia, No Frequency , No Urgency, No Burning, No Hematuria, No Rashes, No Diaphoresis. Appetite is Normal Physical Exam Gen-AAO x 3, NAD, Afebrile Head-NCAT, EOMI, PERRLA, Anicteric Sclera, No Posterior Pharyngeal Erythema Neck-Supple, No JVD, No Thyromegaly, No Masses, No LAD, No Bruits Lungs-Clear to Auscultation Bilaterally, No Rales, No Rhonchi, No Wheezing, No Crepitus Chest-No S4, +S1, +S2, No S3, No Murmurs, No Rubs, No Gallops, No Ectopy Abdomen-Soft, Bowel Sounds Present, Non Tender, Non Distended, No Hepatomegaly, No Splenomegaly, No Palpable Masses, No Rebound, No Rigidity, No Guarding Musculoskeletal-Full Range of Motion Bilaterally, No CVAT Extremities-No Cyanosis, No Clubbing, No Edema Nuero-Cranial Nerves II-XII grossly intact, Motor WNL, DTRs WNL, Strength WNL, No Focal Psych-Normal Mood Results & Data Laboratory Results Current Diagnoses Other specified bacterial agents as the cause of diseases classified elsewhere ( 04/21/18) Acute posthemorrhagic anemia (04/21/18) Anemia, unspecified (04/21/18) Alcohol abuse, uncomplicated (04/21/18) Essential tremor (04/21/18) Nevus, non-neoplastic (04/21/18) Alcoholic cirrhosis of liver without ascites (04/21/18) Gastrointestinal hemorrhage, unspecified (04/21/18) Acute kidney failure, unspecified (01/07/19) Encounter for other preprocedural examination (04/21/18) Allergies lactulose Adverse Reaction (Severe, Verified 04/21/18 06:55) severe loose diarrhea Height/Weight/Isolation Height 4 ft 11 in Weight 73.9 kg Isolation Type Contact Precautions Chemistry 04/22/18 04:19 Sodium 138 Potassium 4.4 Chloride 111 H Carbon Dioxide 23 Anion Gap 4.0 BUN 25 H Creatinine 0.98 D Glucose 104 H
--- NOTE | 2018-04-23 13:26 | Gastroenterology Progress Note ---
Date of Service April 23, 2018 Assessment & Plan (1) Alcoholic cirrhosis of liver: Pt is a 62 y/o female w hx of ETOH cirrhosis admitted for symptomatic anemia, melena. 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 EGD performed on 04/22/18 showed multiple angioectasias in stomach and duodenum treated w APC. Her blood ct remains stable w/o overt signs of GI bleeding. - Stable from DC from GI standpoint. - She would need to get established w a PCP and get her blood ct monitored closely starting w qweek; and gets periodic transfusion as needed. - Encouraged to abstain from ETOH - Will sign off; call if new questions/concerns arise. (2) Anemia: (3) Clostridium difficile infection: (4) Telangiectasia: Supervising Physician Co-Signing Physician Notes I have performed a history and physical examination of this patient and reviewed the electronic medical record. Specifically, on physical examination patient is oriented without signs of continue bleeding. I have discussed the case with MASON Natarajan. The above note reflects my findings, conclusions , and recommendations. Ernesto Lozano MD Subjective Pt denies any issues overnight, denies any abd pain, n/v. BM this AM w/o dark or tarry, blood stools. Physical Exam 2 Vital Signs (Past 24 Hours): Last Vital Signs Temp 37.1 C 04/23/18 07:00 Pulse 87 04/23/18 07:00 Resp 20 04/23/18 07:00 BP 130/81 04/23/18 07:00 Pulse Ox 97 04/23/18 08:00 Constitutional: WD/WN, vitals as above well groomed, cooperative and comfortable Eyes: PERRL, conjunctivae normal, anicteric sclerae ENMT: external ear and nose normal, oropharynx normal Respiratory: normal respiratory effort, lungs clear to auscultation Cardiovascular: RRR, no murmur, no edema Gastrointestinal (Abdomen): normal bowel sounds, soft, nontender, no hepatosplenomegaly Skin: no rashes, warm and dry no jaundice Neurologic: Motor/Sensory: no asterixis Psychiatric: A+Ox3, euthymic affect Lymphatic: no lymphedema _ (1) Anemia Anemia type: unspecified type Bone marrow failure anemia type: Chronic kidney disease stage: Folate deficiency anemia type: Hemolytic anemia type: Iron deficiency anemia type: Other causes of anemia: Vitamin B12 deficiency anemia type: Qualified Code(s): D64.9 - Anemia, unspecified
[2018-04-23] MEDS: ACETAMINOPHEN W/CODEINE #3 1 TAB PO PRN (17:23)
[2018-04-24] MEDS: RASPBERRY SYRUP 5 ML UDP PO SCH ×3 (01:40→12:18)
[2018-04-24] MEDS: VANCOMYCIN HCL 125 MG/2.5ML SOLN PO SCH ×3 (01:40→12:19)
[2018-04-24] MEDS: SODIUM CHLORIDE 0.9% 1000ML 1,000 ML IV SCH (01:45)
[2018-04-24 08:18] LABS: Hemoglobin 9.1 g/dL (12.0-16.0); Mean Corpuscular Volume 89.8 fL (80-100); Mean Platelet Volume 10.3 fL (7.4-10.4); Nucleated RBC # (auto) 0.05 K/uL (0-0); Nucleated RBC % (auto) 0.4 %; Platelet Count 154 K/uL (130-400); RDW Coefficient of Variation 19.4 % (11.5-14.5); RDW Standard Deviation 59.8 fL (36.4-46.3); Red Blood Count 3.23 M/uL (4.2-5.4); White Blood Count 11.32 K/uL (4.8-10.8)
[2018-04-24] MEDS: RIFAXIMIN 550 MG TABLET PO SCH (08:22)
[2018-04-24] MEDS: MULTIVITAMIN TAB PO SCH (08:22)
[2018-04-24] MEDS: PANTOprazole 40 MG TAB PO SCH (08:22)
[2018-04-24] MEDS: THIAMINE HCL 100 MG TAB PO SCH (08:23)
[2018-04-24] MEDS: MAGNESIUM OXIDE 400 MG TAB PO SCH (08:23)
[2018-04-24] MEDS: FOLIC ACID 1 MG TAB PO SCH (08:23)
[2018-04-24 08:26] LABS: Mean Corpuscular Hgb Conc 31.4 g/dL (32-36)
[2018-04-24 08:43] LABS: BUN Creatinine Ratio 15.1 (10-20); Calcium 7.2 mg/dl (8.5-10.1); Est GFR (African American) 102.3; Est GFR (Non-African American) 88.3
--- NOTE | 2018-04-24 09:49 | Discharge Summary ---
Date of Service April 24, 2018 Admission HPI Per Admitting Provider 62-year-old female who presents to the ED with generalized weakness. Patient has history of alcoholic cirrhosis, recently being admitted to [facility] 04/03 through 04/10 for hepatic encephalopathy, alcohol withdrawal, C. difficile infection, enterococcus UTI. Patient was discharged on amoxicillin for the UTI which she completed. She was also discharged on vancomycin capsules for the C. difficile however reports difficulty with insurance coverage and patient still has 9 tablets remaining of the prescription. Since being home, patient reports she has been doing well until a couple of days ago. Of note, patient did miss her hospital discharge follow-up appointment with PCP. Patient reports generalized weakness for the past couple of days. She also has noted her stools to be dark and tarry. is at the bedside who reports that he took her blood pressure this morning and systolically it was in the 60s. Patient reports having "a couple sips of alcohol"over the past 2 weeks. She denies abdominal pain, nausea, vomiting, diarrhea. No fevers chills. She denies lightheadedness, dizziness, diaphoresis, syncopal events. No urinary symptoms. In the ED, patient is found to have hemoglobin 4.3. She is hemodynamically stable. She was given IVF and started on a PPI drip. She was also typed and crossed for PRBC transfusion. Admission Exam Per Admitting Provider Constitutional: WD/WN, vitals as above Eyes: PERRL, conjunctivae normal, anicteric sclerae ENMT: external ear and nose normal, oropharynx normal Respiratory: normal respiratory effort, lungs clear to auscultation Cardiovascular: Rate/Rhythm: regular rhythm and + tachycardic Vessels: normal peripheral pulses Extremities: + edema Gastrointestinal (Abdomen): normal bowel sounds, soft, nontender, no hepatosplenomegaly Musculoskeletal: no cyanosis or clubbing, extremities motor strength 5/5 Skin: no rashes, warm and dry Chronic telangiectasia noted to be BUE and BLE Neurologic: PERRL, EOMI, accommodation nl, no face palsy, no dysarthria Psychiatric: A+Ox3, euthymic affect Principal Diagnosis GI Bleed GI Blood Loss Anemia Alcoholic Cirrhosis C Dificile Colitis Discharge Exam ROS-No Headache, No Visual Changes, No Fever, No Chills, No Neck Pain or Stiffness, No Chest Pain, No Palpitations, No SOB, No ROBISON, No Cough, No Sputum, No Wheezing, No Abdominal Pain, No Diarrhea, No Hematemesis, No Hemoptysis, No Unexpected Weight Loss, No Flank pain, No Melena, No Hematochezia, No Frequency , No Urgency, No Burning, No Hematuria, No Rashes, No Diaphoresis. Appetite is Normal Physical Exam Gen-AAO x 3, NAD, Afebrile Head-NCAT, EOMI, PERRLA, Anicteric Sclera, No Posterior Pharyngeal Erythema Neck-Supple, No JVD, No Thyromegaly, No Masses, No LAD, No Bruits Lungs-Clear to Auscultation Bilaterally, No Rales, No Rhonchi, No Wheezing, No Crepitus Chest-No S4, +S1, +S2, No S3, No Murmurs, No Rubs, No Gallops, No Ectopy Abdomen-Soft, Bowel Sounds Present, Non Tender, Non Distended, No Hepatomegaly, No Splenomegaly, No Palpable Masses, No Rebound, No Rigidity, No Guarding Musculoskeletal-Full Range of Motion Bilaterally, No CVAT Extremities-No Cyanosis, No Clubbing, No Edema Nuero-Cranial Nerves II-XII grossly intact, Motor WNL, DTRs WNL, Strength WNL, No Focal Psych-Normal Mood Discharge Data Allergies Allergy/AdvReac Type Severity Reaction Status Date / Time lactulose AdvReac Severe severe Verified 04/21/18 06:55 loose diarrhea Consultations 04/21/18 07:08 Consult Gastroenterology Stat 04/21/18 07:23 ED Decision to Admit Stat 04/21/18 07:41 Consult Tax Associate Stat 04/21/18 10:02 Consult Case Management - Discharge Planning Routine Consult Tax Associate Routine Procedures Performed Operation Date: 04/22/18 11:30 Actual Procedures p EGD Hemostasis - Ernesto Lozano MD Current Diagnoses Other specified bacterial agents as the cause of diseases classified elsewhere ( 04/21/18) Acute posthemorrhagic anemia (04/21/18) Anemia, unspecified (04/21/18) Alcohol abuse, uncomplicated (04/21/18) Essential tremor (04/21/18) Nevus, non-neoplastic (04/21/18) Alcoholic cirrhosis of liver without ascites (04/21/18) Gastrointestinal hemorrhage, unspecified (04/21/18) Acute kidney failure, unspecified (04/21/18) Encounter for other preprocedural examination (04/21/18) Allergies lactulose Adverse Reaction (Severe, Verified 04/21/18 06:55) severe loose diarrhea Height/Weight/Isolation Height 4 ft 11 in Weight 73.9 kg Isolation Type Contact Precautions Chemistry 04/24/18 08:05 Sodium 141 Potassium 4.0 Chloride 116 H Carbon Dioxide 20 L Anion Gap 5.0 BUN 11 Creatinine 0.73 Glucose 96 Hospital Course (1) Acute blood loss anemia: Hemoglobin down from yesterday (2) GI bleed: Persistent GI bleeding in the setting of cirrhosis and HHT in addition to alcohol use. Repeat bleed after recent admission. Endoscopy revealed extensive angiectasia is in the cardia and the gastric antrum. There were several areas with fresh adherent clot. Coagulation for hemostasis using argon plasma was successful. Multiple angioid ectasias without bleeding were found in the entire duodenum. She was returned to the ICU for ongoing care on PPI therapy.she was out of the ICU when I saw her yesterday. Her Hb yesterday was 8.9 and today 9.2. DC today and f/u c GI and PCP. (3) RANDY (acute kidney injury): RANDY likely secondary to hypovolemia resolved after fluid resuscitation and blood transfusion. Furosemide and spironolactone continue on discharge (4) Alcoholic cirrhosis of liver: Monitor labs outpatient (5) Alcohol abuse: -Patient with history of heavy alcohol use in the past, recent admission for alcohol withdrawal/hepatic encephalopathy/decompensated cirrhosis Counseled to stop (6) Clostridium difficile infection: finish Vanco course days of oral Vanco 125 p.o. every 6, no active diarrhea, contact precautions. (7) DVT prophylaxis: Full code Disposition-patient expressed to Dr. Capps that she was "tired of all this." When asked her to elaborate it was not clear if she was done with treatment or is simply wanting to go seek medical attention at a different hospital. This conversation was prompted by Dr. Capps's recommendation to consider an indwelling port in the event of future frequent hospital admissions which would potentially cause more central line placement and multiple peripheral IVs. She was concerned and at this point did not want to consider a port. Total Time Total Time Spent Total Time Spent (In Minutes): 60 minutes Total Time Includes: Examination of the Patient, Discharge Planning, Medication Reconciliation and Communication With Other Providers Discharge Plan Discharge Items Patient Disposition: Home - Self-Care Reason For Visit: GI BLEED Discharge Diagnosis: GI Bleed GI Blood Loss Anemia Alcohol Cirrhosis C Diff Colitis Discharge Goals: Decrease discomfort, Improve disease control and Improve function Activity: Resume your previous activity Lifting: Gradually increase as tolerated Bathing: No limitations Sexual Activity: When tolerated Exercise/Sports: None, Rest today and Gradually increase as tolerated Driving/Machine Use: No limitations Weightbearing: Left weightbearing and Right weightbearing Non-emergency contact: Primary Care Provider and Coal [employer] Call non-emergency contact if: your symptoms worsen Diet: Heart Healthy Addtl Provider Instructions: Monitor H/H outpatient Prescriptions: New vancomycin 125 mg/2.5 mL syringe 125 mg PO Q6H 7 Days Qty: 70 RF: 0 multivitamin [Daily-Norris] Tablet 1 tab PO QAM Qty: 100 RF: 0 pantoprazole 40 mg Tablet,Delayed Release (Dr/Ec) 40 mg PO BID Qty: 60 RF: 0 ferrous sulfate [iron] 325 mg (65 mg iron) tablet 325 mg PO BID Qty: 60 RF: 0 Continue spironolactone 100 mg Tablet 200 mg PO DAILY RF: 0 furosemide 40 mg Tablet 40 mg PO QAM 30 Days Qty: 30 RF: 0 pantoprazole 40 mg Tablet,Delayed Release (Dr/Ec) 40 mg PO QAM 30 Days Qty: 30 RF: 0 propranolol 80 mg tablet 40 mg PO QAM 30 Days Qty: 15 RF: 0 thiamine HCl (vitamin B1) [Vitamin B-1] 100 mg Tablet 100 mg PO QAM Qty: 0 RF: 0 magnesium oxide 400 mg magnesium Tablet 400 mg PO DAILY RF: 0 folic acid 1 mg Tablet 1 mg PO DAILY RF: 0 rifaximin 550 mg Tablet 550 mg PO BID RF: 0 Discontinued vancomycin 125 mg Capsule 125 mg PO Q6H RF: 0 Visit Report Forms: [facility] [place] Stand-Alone Forms: Discharge CDIFF, [facility] Discharge Orders: Discharge Order (Routine); Ordered 04/24/18 Ordered By: Leroy Poe Admission Data Admit Date/Time: 04/21/18 08:18 Attending Provider: Leroy Poe Admit Provider: Leroy Poe Primary Care Provider: Mary Martinez Other Providers: Wardeh,Anas ; Adam Oscar ; Brandi Capps Service: Medical Other Pending Studies at Discharge: No
[2018-04-24 16:29] LABS: Hydrocodone Urine NEGATIVE NG/ML (CUTOFF=50); Hydromor Urine NEGATIVE NG/ML (CUTOFF=50); Morphine Urine NEGATIVE NG/ML (CUTOFF=50); Norhydrocodone Conf Ur NEGATIVE NG/ML (CUTOFF=50); Noroxycodone Urine NEGATIVE NG/ML (CUTOFF=50); Oxycodone Urine NEGATIVE NG/ML (CUTOFF=50)
== END 2018-04-24 13:22 | disposition home or self-care (01) | DRG 433 ==
LOC: ED 06:27 → SUATTDRO 08:18 → 1E 08:18 → 4W 04-22 21:49